=== PATIENT | female | born 1975 | race Caucasian/White ===

== ENCOUNTER 2019-04-05 17:19 | Emergency (ER) | payer SELFPAY ==
[2019-04-05 17:27] VITALS: BP 133/84; PULSE 90; RESP 17; TEMP 36.6; O2SAT 97; BMI 31.7
[2019-04-05 17:58] VITALS: BP 129/80; PULSE 86; RESP 17; TEMP 36.6; O2SAT 99; BMI 31.7
--- NOTE | 2019-04-05 18:02 | HMH.EDGENADL ---
ED Disposition Clinical Impression: Lupus (systemic lupus erythematosus) Qualifiers: Systemic lupus erythematosus type: unspecified Systemic lupus erythematosus organ involvement: unspecified Qualified Code(s): M32.9 - Systemic lupus erythematosus, unspecified Disposition: Home, Self-Care Condition on Discharge: Good Instructions: DI for Systemic Lupus Erythematosus Additional Instructions: Prednisone as prescribed. You are being provided with a list of physicians available for follow-up of your condition. Please call a physician on this list to arrange a follow-up appointment as soon as possible. Prescriptions: predniSONE [Prednisone 10mg Tab Dose-Pack] 10 mg PO DAILY #42 pack Referrals: Provider,Referral, [Primary Care Provider] - - Critical Care Critical Care Time: No Attestation: On 04/05/19, the high probability of a clinically significant, sudden or life threatening deterioration of the following system(s) required my full and direct attention, intervention and personal management. The time I documented below is in addition to time spent performing reported procedures but includes the following listed in this critical care notation. Medical Decision Making - Nael Inquiry Pt receiving controlled substance: No Vital Signs: 04/05/19 17:27 04/05/19 17:58 Temperature 97.8 F 97.9 F Temperature Source Oral Oral Pulse Rate [Left Radial] 90 86 Respiratory Rate 17 17 Blood Pressure [Right Arm] 133/84 129/80 Blood Pressure Mean [Right Arm] 100 96 Blood Pressure Source [Right Arm] Automatic Cuff Automatic Cuff Blood Pressure Position [Right Arm] Sitting Sitting 02 Sat by Pulse Oximetry 97 99 Oxygen Delivery Method Room Air Room Air Orders (Tests/Meds): ORDERS Category Date Time Status CT head/brain wo con Stat Cat Scan 04/05/19 18:12 Stop Req Complete Blood Count Auto Diff Stat Lab 04/05/19 18:08 Stop Req Comprehensive Metabolic Panel Stat Lab 04/05/19 18:08 Stop Req Medical Decision Narrative: Offered laboratory work-up, but the patient declines. She does not want blood work, thyroid function tests. General Adult HPI - General Stated complaint: Kidney Problems Time Seen by Provider: 04/05/19 18:15 Mode of Arrival: Ambulatory Source of Information: Patient Limitations: No Limitations Description of Symptoms (Recalled from ER Triage Doc. by RN): Thinks she is having a flare up of her Lupus, states that she has these often and sometimes they just go away, c/o lower back/kidney pain, feet swelling and tired. No edema noted at this time - History of Present Illness HPI narrative: Sent from the [facility]. Patient tells me that she knows what is wrong with her. She states she is having a lupus flareup. She says that she only needs a prescription for prednisone. She does not want any tests or CAT scans. She says that she was diagnosed in [place], saw several physicians, had blood work done. She says that her flareups were treated with a tapering dose of prednisone. She says she also has rheumatoid arthritis. She has also been on thyroid replacement in the past. She is now has been having symptoms for the past several weeks. She says when she gets a lupus flareup she gets swelling of her hands and feet and face. She gets flareup of her irritable bowel syndromes. She gets bilateral flank pain. She gets fatigue. She has not had fever. - Related Data Previous Rx's Medication Instructions Recorded predniSONE [Prednisone 10mg Tab 10 mg PO DAILY #42 pack 04/05/19 Dose-Pack] Allergies Allergy/AdvReac Type Severity Reaction Status Date / Time No Known Allergies Allergy Unverified 09/29/17 15:[address] [facility] History - Hepatitis A Screen Attestation statement:: This patient has been screened for Hepatitis A risk factors. I have reviewed the patient's past medical history: Yes ROS Obtained: Yes All systems reviewed & no additional complaints - Constitutional Con
--- NOTE | 2019-04-05 18:18 | PC.NURSE ---
MD at bedside, pt states that she does not want any test and knows this is a lupus flare up and only wants prednisone
[2019-04-05 18:24] LABS: Basophils % 0.6 % (0.1-2.0); Eosinophils # 0.3 K/mm3 (0.0-0.4); Eosinophils % 4.8 % (0.1-12.0); Hematocrit 45.6 % (37.0-47.0); Hemoglobin 14.6 g/dL (12.2-16.2); Lymphocytes % 44.6 % (10-50); Mean Corpuscular Hemoglobin 29.2 pg (27.0-31.2); Mean Corpuscular Volume 91.3 fl (81-99); Monocytes # 0.2 K/mm3 (0.1-1.0); Monocytes % 3.3 % (1.7-9.3); Neutrophils # 3.1 K/mm3 (1.8-7.8); Neutrophils % 46.7 % (37.0-80.0); Platelet Count 200 K/mm3 (142-424); Red Blood Count 4.99 M/mm3 (4.20-5.40); Red Cell Distribution Width 13.9 % (11.5-17.5); White Blood Count 6.7 K/mm3 (4.8-10.8)
[2019-04-05 18:31] LABS: Alanine Aminotransferase 39 U/L (12-78); Albumin Level 3.8 gm/dL (3.4-5.0); Albumin/Globulin Ratio 1.1 (1.1-1.8); Alkaline Phosphatase 109 U/L (46-116); Anion Gap 14.2 mEq/L (5-15); Aspartate Amino Transferase 27 U/L (15-37); Bilirubin,Total 0.3 mg/dL (0.2-1.0); Blood Urea Nitrogen 19 mg/dL (7-18); Calcium 8.9 mg/dL (8.5-10.1); Carbon Dioxide 27 mmol/L (21.0-32.0); Chloride 107 mmol/L (98-107); Creatinine Clearance Estimated 107 mL/min (50-200); Creatinine,Serum 1.03 mg/dL (0.55-1.02); Estimated Glomerular Filt Rate 58 ml/min (>60); GFR (African American) 70 ML/MIN (>60); Globulin 3.4 gm/dl (1.3-3.2); Glucose 106 mg/dL (74-106); Potassium 4.2 mmoL/L (3.5-5.1); Sodium 144 mmol/L (136-145); Total Protein,Serum 7.2 gm/dL (6.4-8.2)
[2019-04-05 18:39] VITALS: BP 110/76; PULSE 86; RESP 18; TEMP 36.9; O2SAT 94
== END 2019-04-05 18:41 | disposition home or self-care (01) ==
LOC: UTC 17:35 → ER 17:47
PROVIDERS: Emergency Provider Emergency Medicine
DX: M32.9 Systemic lupus erythematosus, unspecified (principal); K58.9 Irritable bowel syndrome, unspecified
CPT/HCPCS: 80053; 85025; 96374; 99281

== ENCOUNTER → 2019-08-25 10:13 | Outpatient (CLI) | payer MEDICAID, SELFPAY ==
--- NOTE | 2019-08-25 10:58 | XR_ITS ---
PROCEDURE: XR CHEST 2V CLINICAL HISTORY: cough Cough and right chest pain COMPARISON: Chest from 05/22/2019 FINDINGS: The cardiomediastinal silhouette and pulmonary vascularity are within normal limits. The lungs are clear without infiltrates, suspicious nodules, or pleural effusions. No acute bony abnormalities. IMPRESSION: No acute findings. Dictated by: Ryland Gregory MD 08/25/2019 15:30 Electronically signed by Ryland Gregory MD in [place] 08/25/2019 15:30
[2019-08-25 11:26] LABS: Basophils % 0.3 % (0.1-2.0); Eosinophils # 0.4 K/mm3 (0.0-0.4); Eosinophils % 4.1 % (0.1-12.0); Hematocrit 45.4 % (37.0-47.0); Hemoglobin 14.6 g/dL (12.2-16.2); Lymphocytes # 2.9 K/mm3 (0.7-4.5); Lymphocytes % 29.4 % (10-50); Mean Corpuscular HGB Conc 32.2 g/dL (31.8-35.4); Mean Corpuscular Hemoglobin 28.7 pg (27.0-31.2); Mean Corpuscular Volume 89.1 fl (81-99); Mean Platelet Volume 10.6 fl (7.4-10.4); Monocytes # 0.3 K/mm3 (0.1-1.0); Monocytes % 3.1 % (1.7-9.3); Neutrophils # 6.1 K/mm3 (1.8-7.8); Platelet Count 230 K/mm3 (142-424); Red Blood Count 5.09 M/mm3 (4.20-5.40); Red Cell Distribution Width 13.7 % (11.5-17.5); White Blood Count 9.7 K/mm3 (4.8-10.8)
[2019-08-25 12:45] LABS: Erythrocyte Sedimentation Rate 6 mm/hr (0-20)
[2019-08-25 13:50] LABS: Alanine Aminotransferase 40 U/L (12-78); Albumin Level 3.9 gm/dL (3.4-5.0); Albumin/Globulin Ratio 1.2 (1.1-1.8); Alkaline Phosphatase 123 U/L (46-116); Anion Gap 11.5 mEq/L (5-15); Aspartate Amino Transferase 21 U/L (15-37); Bilirubin,Total 0.3 mg/dL (0.2-1.0); Blood Urea Nitrogen 17 mg/dL (7-18); Calcium 9.1 mg/dL (8.5-10.1); Carbon Dioxide 28 mmol/L (21.0-32.0); Chloride 105 mmol/L (98-107); Chol/HDL Ratio 4.4 (1-3.5); Cholesterol 171 mg/dL (140-200); Creatinine,Serum 0.86 mg/dL (0.55-1.02); Estimated Glomerular Filt Rate 72 ml/min (>60); Free T4 (Free Thyroxine) 0.95 ng/dl (0.76-1.46); GFR (African American) 87 ML/MIN (>60); Globulin 3.2 gm/dl (1.3-3.2); Glucose 115 mg/dL (74-106); HDL Cholesterol 39 mg/dL (29-89); LDL Cholesterol 111 mg/dL (0-130); Potassium 4.5 mmoL/L (3.5-5.1); Sodium 140 mmol/L (136-145); Thyroid Stimulating Hormone 2.78 uIU/ml (0.358-3.740); Total Protein,Serum 7.1 gm/dL (6.4-8.2); Triglycerides 105 mg/dL (30-200); VLDL Cholesterol 21 mg/dL (0-40)
[2019-08-25 14:03] LABS: C-Reactive Protein < 0.2 mg/dL (0.0-0.9)
[2019-08-26 10:13] LABS: Anti-Centromere B Antibodies <0.2 AI (0.0-0.9); Anti-Jo-1 <0.2 AI (0.0-0.9); Anti-Smith Antibody <0.2 AI (0.0-0.9); Antichromatin Antibodies <0.2 AI (0.0-0.9); Antiscleroderma-70 Antibodies <0.2 AI (0.0-0.9); RNP Antibodies 0.3 AI (0.0-0.9); Sjogren's Anti-SS-A <0.2 AI (0.0-0.9); Sjogren's Anti-SS-B <0.2 AI (0.0-0.9)
[2019-08-26 21:14] LABS: Vitamin D 25 Hydroxy 17.7 ng/mL (30.0-100.0)
[2019-08-26 21:15] LABS: Anti-DNA (DS) Ab Qn <1 IU/mL (0-9); RA Latex Turbid. 27.7 IU/mL (0.0-13.9)
[2019-08-27 01:07] LABS: PTT-LA 40.5 sec (0.0-51.9); dRVVT 41.7 sec (0.0-47.0)
[2019-08-27 05:14] LABS: Lupus Reflex Interpretation Comment: (.)
[2019-08-28 21:49] LABS: Anti-Cyclic Citrullinated Pept 8 units (0-19)
== END ==
PROVIDERS: PCP Nurse Practitioner Family; Visit Provider Nurse Practitioner Family
DX: R53.83 Other fatigue (principal); N64.4 Mastodynia; R05 Cough; F17.200 Nicotine dependence, unspecified, uncomplicated
CPT/HCPCS: 71046; 80053; 80061; 82652; 84439; 84443; 85025; 85613; 85651; 86140; 86200; 86225; 86235; 86431

== ENCOUNTER → 2019-09-16 13:17 | Outpatient (CLI) | payer MEDICAID, SELFPAY ==
--- NOTE | 2019-09-16 13:19 | MM_ITS ---
PROCEDURE: MM DIG MAMM BI DX W/CAD CLINICAL INDICATION: PALP AREA RT BREAST Palpable abnormality in the right breast COMPARISON: DMDB DIGITAL MAMM-DX BILATERAL from 05/18/2012 US BREAST RT COMPLETE from 09/16/2019 TECHNIQUE: Standard CC and MLO images were obtained. R2 CAD reviewed. FINDINGS: This exam was performed as a screening and therefore not checked for additional images needed. Has been interval decrease in the fibroglandular tissue compared the previous study. There is a small area of asymmetric density in the superior aspect of the right breast as seen on the MLO view and there is a 6 mm nodular opacity in the central aspect right breast noted on CC view. Benign-appearing calcifications are noted on the left. No discrete mass. Right breast ultrasound: At 6 o'clock there is a 6 x 4 mm cyst. No other significant anomalies are evident. Patient reports palpable abnormality in the axillary region. IMPRESSION: Asymmetric densities in the right breast for which spot-compression views and straight mL view is suggested. BI-RAD Category: 0 Need Additional Imaging Evaluation FOLLOW-UP: IMM Immediate Follow-up Recommended There were no mammographic or sonographic abnormalities to correspond to the areas of palpable concern. Any palpable lesion should be managed on clinical basis despite a negative mammogram and ultrasound. (A letter has been sent to the patient regarding results of the study.) Dictated by: Ryland Gregory MD 09/24/2019 10:04 Electronically signed by Ryland Gregory MD in [place] 09/24/2019 10:04
== END ==
PROVIDERS: PCP Nurse Practitioner Family; Visit Provider Nurse Practitioner Family
DX: N64.4 Mastodynia (principal)
CPT/HCPCS: 76641; 77066

== ENCOUNTER → 2019-11-17 12:25 | Outpatient (CLI) | payer MEDICAID, SELFPAY ==
--- NOTE | 2019-11-17 12:25 | MM_ITS ---
PROCEDURE: MM DIG MAMM DX UNILAT RT CAD CLINICAL INDICATION: abnormal screening mammogram Follow-up abnormal mammogram COMPARISON: DMDB DIGITAL MAMM-DX BILATERAL from 05/18/2012 US BREAST RT COMPLETE from 09/16/2019 MM DIG MAMM BI DX W/CAD from 09/16/2019 TECHNIQUE: Problem solving views with 3D Tomosynthesis was obtained. R2 CAD reviewed. FINDINGS: There is average fibroglandular tissue. The area of asymmetric density in the superior aspect of the right breast appear to compress out is fibroglandular tissue. There is a small nodular opacity in the central aspect of the right breast. This measures approximately mm and may correspond to the small cyst noted at 6 o'clock on the ultrasound. IMPRESSION: Probably benign findings. No convincing evidence of malignancy BI-RAD Category: 3 Probably Benign Finding Short Term Follow-up FOLLOW-UP: 6M 6Month Follow-up (A letter has been sent to the patient regarding results of the study.) Dictated by: Ryland Gregory MD 11/26/2019 08:42 Electronically signed by Ryland Gregory MD in [place] 11/26/2019 08:42
[2019-11-19 08:18] LABS: Hep A Ab, IgM Negative (Negative); Hepatitis B Core Antibody IgM Negative (Negative); Hepatitis B Surface Antigen Negative (Negative)
[2019-11-19 15:30] LABS: Hepatitis C Antibody <0.1 s/co ratio (0.0-0.9)
== END ==
PROVIDERS: PCP Nurse Practitioner Family; Visit Provider Nurse Practitioner Family
DX: R76.8 Other specified abnormal immunological findings in serum (principal); Z11.59 Encounter for screening for other viral diseases; N60.09 Solitary cyst of unspecified breast; R92.8 Other abnormal and inconclusive findings on diagnostic imaging of breast
CPT/HCPCS: 36415; 77061; 77065; 80074; G0279

== ENCOUNTER 2020-06-05 15:54 | Emergency (ER) | payer MEDICAID, SELFPAY ==
--- NOTE | 2020-06-05 15:52 | ECG_ITS ---
APPROVED REPORT Exam: Resting ECG HR:68 bpm ECG Measurements Heart Rate 68 AXES CO 152 P 18 QRSd 82 QRS 56 QT 390 T 69 QTc 414 <Conclusion> Normal sinus rhythm Low voltage QRS Borderline ECG Electronically signed by : Patrick Cardenas, 06/06/2020 08:59:26
[2020-06-05 15:54] VITALS: BP 127/72; PULSE 80; RESP 17; TEMP 36.6; O2SAT 98; BMI 33.0
--- NOTE | 2020-06-05 15:57 | HMH.EDGENADL ---
ED Disposition Clinical Impression: Atypical chest pain, Chronic cough Disposition: Home, Self-Care Condition on Discharge: Good Instructions: DI for Cough -- Adult, DI for Atypical Chest Pain Additional Instructions: Call your primary care provider or the emergency department in 2 days for your COVID-19 test result. Additional instructions for CHEST PAIN: See your physician as soon as possible for further evaluation. Return immediately if worsening chest pain, vomiting, shortness of breath, fever, coughing of blood. Prescriptions: Albuterol Sulfate [Proventil-HFA 90mcg/puff Inh] 1 - 2 puffs IH Q6HP PRN #1 inh PRN Reason: Wheezing Transmission Status: Pending to [facility] Referrals: Celina Arriola APRN [Primary Care Provider] - - Critical Care Critical Care Time: No Attestation: On , the high probability of a clinically significant, sudden or life threatening deterioration of the following system(s) required my full and direct attention, intervention and personal management. The time I documented below is in addition to time spent performing reported procedures but includes the following listed in this critical care notation. Medical Decision Making - Nael Inquiry Pt receiving controlled substance: No Vital Signs: 06/05/20 15:54 06/05/20 17:02 06/05/20 19:12 Temperature 97.9 F Temperature Source Oral Pulse Rate [Right Radial] 80 73 79 Respiratory Rate 17 Blood Pressure [Right Arm] 127/72 106/73 L 125/81 Blood Pressure Mean [Right Arm] 90 84 95 Blood Pressure Source [Right Arm] Automatic Cuff Automatic Cuff Blood Pressure Position [Right Arm] Supine Sitting 02 Sat by Pulse Oximetry 98 94 L 96 Oxygen Delivery Method Room Air Room Air Room Air - Lab Data Lab Results 06/05/20 16:00: WBC 8.8, RBC 4.95, Hgb 15.1, Hct 44.1, MCV 89.1, MCH 30.5, MCHC 34.2, RDW 13.5, Plt Count 182, MPV 10.5 H, Neut % (Auto) 63.5, Lymph % (Auto) 29.3, Barrow % (Auto) 2.8, Eos % (Auto) 4.2, Baso % (Auto) 0.2, Neut # (Auto) 5.6, Lymph # (Auto) 2.6, Barrow # (Auto) 0.2, Eos # (Auto) 0.4, Baso # (Auto) 0.0 06/05/20 16:00: Sodium 140, Potassium 3.7, Chloride 105, Carbon Dioxide 24, Anion Gap 14.7, BUN 13, Creatinine 0.90, Estimated Creat Clear 130, Estimated GFR 68, Est GFR ( Amer) 82, Glucose 133 H, Calcium 9.5, Total Bilirubin 0.3, AST 42 H, ALT 28, Alkaline Phosphatase 115, Troponin I < 0.01, Total Protein 7.3, Albumin 4.3, Globulin 3.0, Albumin/Globulin Ratio 1.4 06/05/20 16:00: D-Dimer 0.77 06/05/20 18:55: Troponin I < 0.01 Result diagrams: 06/05/20 16:00 06/05/20 16:00 Orders (Tests/Meds): ORDERS Category Date Time Status Covid-19 Nasal PCR Sendout Elpidio Stat Lab 06/05/20 16:30 Received Troponin I Q3H Lab 06/05/20 22:00 Ordered - ECG Data Tracing #1 EKG interpreted by Tuan Selby MD: Rhythm: sinus Rate: 68 Bentley: normal Ectopy: none Conduction: normal ST Segment Changes: none T Wave Changes: none Q Waves: none Low voltage QRS No evidence of acute ischemia or injury - Reevaluation(s) Time: 19:49 Reevaluation #1: Second troponin negative. Discussed results with patient. She requests a prescription for an inhaler, states she has used 1 in the past. - TAB Score for Non-Stemi Age of Patient: 40-49 years old Heart Rate: 70-89 bpm Systolic Blood Pressure: 120-139 mmhg Serum Creatinine: 0.80-1.19 mg/dl CHF Killip Class: I-No CHF Other Risk Factors: None Non-Stemi Risk Score: 75 General Adult HPI - General Stated complaint: chest pain Time Seen by Provider: 06/05/20 15:58 - History of Present Illness HPI narrative: States that she has had constant chest pain like somebody standing on her chest since yesterday evening. Feels short of breath. No nausea or diaphoresis. Denies prior similar pain. She has been evaluated in this emergency department for chest pain this year, but it was a different type of pain. She does not have any known hea
--- NOTE | 2020-06-05 15:59 | XR_ITS ---
PROCEDURE: XR CHEST 2V CLINICAL HISTORY: chest pain COMPARISON: CR Chest from 05/22/2019 CR XR CHEST 2V from 08/25/2019 FINDINGS: The cardiomediastinal silhouette and pulmonary vascularity are within normal limits. The lungs are clear without infiltrates, suspicious nodules, or pleural effusions. No acute bony abnormalities. IMPRESSION: No acute findings. Dictated by: Ryland Gregory MD 06/05/2020 16:47 Ryland Gregory MD in [place] 06/05/2020 16:47
[2020-06-05 16:19] LABS: Basophils % 0.2 % (0.1-2.0); Eosinophils # 0.4 K/mm3 (0.0-0.4); Eosinophils % 4.2 % (0.1-12.0); Hematocrit 44.1 % (37.0-47.0); Hemoglobin 15.1 g/dL (12.2-16.2); Lymphocytes # 2.6 K/mm3 (0.7-4.5); Lymphocytes % 29.3 % (10-50); Mean Corpuscular HGB Conc 34.2 g/dL (31.8-35.4); Mean Corpuscular Hemoglobin 30.5 pg (27.0-31.2); Mean Corpuscular Volume 89.1 fl (81-99); Mean Platelet Volume 10.5 fl (7.4-10.4); Monocytes # 0.2 K/mm3 (0.1-1.0); Monocytes % 2.8 % (1.7-9.3); Neutrophils # 5.6 K/mm3 (1.8-7.8); Neutrophils % 63.5 % (37.0-80.0); Platelet Count 182 K/mm3 (142-424); Red Blood Count 4.95 M/mm3 (4.20-5.40); Red Cell Distribution Width 13.5 % (11.5-17.5); White Blood Count 8.8 K/mm3 (4.8-10.8)
[2020-06-05 16:25] LABS: Alanine Aminotransferase 28 U/L (12-78); Albumin Level 4.3 g/dl (3.5-5.0); Albumin/Globulin Ratio 1.4 (1.1-1.8); Alkaline Phosphatase 115 U/L (38-126); Anion Gap 14.7 mEq/L (5-15); Aspartate Amino Transferase 42 U/L (14-36); Bilirubin,Total 0.3 mg/dl (0.2-1.3); Blood Urea Nitrogen 13 mg/dl (7-17); Calcium 9.5 mg/dl (8.4-10.2); Carbon Dioxide 24 mmol/L (22.0-30.0); Chloride 105 mmol/L (98-107); Creatinine Clearance Estimated 130 mL/min (50-200); Estimated Glomerular Filt Rate 68 ml/min (>60); GFR (African American) 82 ML/MIN (>60); Glucose 133 mg/dl (74-100); Potassium 3.7 mmoL/L (3.5-5.1); Sodium 140 mmol/L (136-145); Total Protein,Serum 7.3 g/dl (6.3-8.2)
[2020-06-05 16:30] LABS: D-Dimer 0.77 ug/mL (0.15-8.0)
[2020-06-05 16:39] LABS: Troponin I < 0.01 ng/ml (0.00-0.034)
[2020-06-05 17:02] VITALS: BP 106/73; PULSE 73; O2SAT 94
--- NOTE | 2020-06-05 18:54 | PC.NURSE ---
repeat troponin drawn per kristian nassar and sent to lab at this time
[2020-06-05 19:12] VITALS: BP 125/81; PULSE 79; O2SAT 96
[2020-06-05 19:46] LABS: Troponin I < 0.01 ng/ml (0.00-0.034)
[2020-06-05 19:52] VITALS: BP 118/77; PULSE 68; RESP 16; TEMP 36.6; O2SAT 99
[2020-06-07 16:24] LABS: Covid-19 Nasal PCR Sendout Lex NOT DETECTED
== END 2020-06-05 19:57 | disposition home or self-care (01) ==
PROVIDERS: Emergency Provider Emergency Medicine; PCP Nurse Practitioner Family
DX: Z20.828 Contact with and (suspected) exposure to other viral communicable diseases (principal); R07.89 Other chest pain; F17.210 Nicotine dependence, cigarettes, uncomplicated; M32.9 Systemic lupus erythematosus, unspecified
CPT/HCPCS: 71046; 80053; 84484; 85025; 85378; 93005; 99284; U0004

== ENCOUNTER 2020-09-20 17:46 | Emergency (ER) | payer MEDICAID, SELFPAY ==
[2020-09-20 18:30] VITALS: BP 104/65; PULSE 105; RESP 14; TEMP 36.2; O2SAT 95; BMI 31.5
--- NOTE | 2020-09-20 18:57 | HMH.EDUTC ---
[facility] Disposition Clinical Impression: Viral syndrome, Bronchitis, Exposure to COVID-19 virus Disposition: Home, Self-Care Condition on Discharge: Good Instructions: Preventing the Spread of Coronavirus Discharge Instructions Additional Instructions: Drink plenty of fluids. Take tylenol for pain or fever. Return if you begin to have difficulty breathing. Follow up with your regular doctor. GO TO THE ER FOR ANY WORSENING SYMPTOMS Prescriptions: Ondansetron [Zofran 4mg ODT] 4 mg PO Q8HP PRN #12 tab.rapdis PRN Reason: Nausea Transmission Status: Received by [facility] Azithromycin [Z-Sky 250mg Tab*] 250 mg PO UD DOSE PK #6 tab Transmission Status: Received by [facility] Referrals: PCP,No [Primary Care Provider] - Time of Disposition: 18:58 Medical Decision Making - Medical Records Medical records reviewed: No: I reviewed the patient's medical records. - Nael Inquiry Pt receiving controlled substance: No Vital Signs: 09/20/20 18:30 09/20/20 19:04 Temperature 97.2 F L 97.2 F L Temperature Source Oral Pulse Rate 105 H Pulse Rate [Right Brachial] 105 H Respiratory Rate 14 14 Blood Pressure 104/65 L Blood Pressure [Right Arm] 104/65 L Blood Pressure Mean [Right Arm] 78 Blood Pressure Source [Right Arm] Automatic Cuff Blood Pressure Position [Right Arm] Sitting 02 Sat by Pulse Oximetry 95 Oxygen Delivery Method Room Air Orders (Tests/Meds): ORDERS Category Date Time Status Covid-19 Nasal PCR Sendout Elpidio Routine Lab 09/20/20 18:32 Received [facility] HPI - General Stated complaint: covid test, with symptoms Time Seen by Provider: 09/20/20 18:57 Mode of Arrival: Ambulatory Source of Information: Patient Limitations: No Limitations Description of Symptoms (Recalled from Triage Doc. by RN): PATIENT REQUESTING COVID TEST D/T EXPOSURE HEENT Symptoms (Recalled from RN notes): No Resp Symptoms (Recalled from RN notes): No Skin Symptoms (Recalled from RN notes): No MS Symptoms (Recalled from RN notes): No Functional Status (Recalled from RN notes): WNL - History of Present Illness Provider Complaint: She has been having fever, chills, cough, nausea and body aches for the past 4 days. She has been exposed to covid. - Related Data Previous Rx's Medication Instructions Recorded cholecalciferol (vitamin D3) 125 5,000 unit PO DAILY #30 cap 09/01/19 mcg (5,000 unit) capsule ergocalciferol (vitamin D2) 1,250 50,000 unit PO QWEEK #4 cap 09/01/19 mcg (50,000 unit) capsule Albuterol Sulfate [Proventil-HFA 1 - 2 puffs IH Q6HP PRN #1 inh 06/05/20 90mcg/puff Inh] Azithromycin [Z-Sky 250mg Tab*] 250 mg PO UD DOSE PK #6 tab 09/20/20 Ondansetron [Zofran 4mg ODT] 4 mg PO Q8HP PRN #12 tab.rapdis 09/20/20 Allergies Allergy/AdvReac Type Severity Reaction Status Date / Time No Known Allergies Allergy Verified 06/05/20 15:58 - Worker's Comp Is this a Worker's Comp case?: No [facility] History - Hepatitis A Screen Drug use history?: No High risk sexual behaviors?: No History of sexually transmitted infection?: No Currently employed?: No Childcare worker?: No Do you have indoor plumbing?: Yes Do you have electricity?: Yes Attestation statement:: This patient has been screened for Hepatitis A risk factors. I have reviewed the patient's past medical history: Yes Medical History: Denies:: Diabetes Mellitus Type 1, Diabetes Mellitus Type 2 - Social History Smoking Status: Current every day smoker Tobacco Type: cigarettes # Packs/Day (cigarettes): 1 Alcohol Intake: never Occupational Status: other ROS Obtained: Yes All systems reviewed & no additional complaints - Constitutional Constitutional: Reports system reviewed and no additional complaints, except as docu - Eyes Eyes: Reports system reviewed and no additional complaints, except as docu - ENT Ears, Nose, Mouth, and Throat: Reports system reviewed and no additional com
[2020-09-20 19:04] VITALS: BP 104/65; PULSE 105; RESP 14; TEMP 36.2; O2SAT 95
[2020-09-22 14:04] LABS: Covid-19 Nasal PCR Sendout Lex Not Detected
== END 2020-09-20 19:10 | disposition home or self-care (01) ==
PROVIDERS: Emergency Provider Nurse Practitioner Family
DX: Z20.828 Contact with and (suspected) exposure to other viral communicable diseases (principal); B34.9 Viral infection, unspecified; J20.9 Acute bronchitis, unspecified; F17.210 Nicotine dependence, cigarettes, uncomplicated
CPT/HCPCS: 99201; U0004

== ENCOUNTER 2021-06-24 16:58 | Emergency (ER) | payer MEDICARE, MEDICAID, SELFPAY ==
[2021-06-24 18:15] VITALS: BP 98/70; PULSE 86; RESP 14; TEMP 36.8; O2SAT 96; BMI 30.1
--- NOTE | 2021-06-24 19:00 | HMH.EDUTC ---
[facility] [place] Disposition Clinical Impression: Sinusitis Qualifiers: Sinusitis location: unspecified location Chronicity: unspecified Qualified Code(s): J32.9 - Chronic sinusitis, unspecified Disposition: Home, Self-Care Condition on Discharge: Good Instructions: Sinusitis, DI for Sinusitis, Amoxicillin and Clavulanic Acid Additional Instructions: *Monitor Temp, Over the counter Motrin or Tylenol as directed/as needed Tylenol every 4 hours and Motrin every 6 hours (as long as your family doctor has told you that you can take it) for fever or pain. and straight to ER if unable to lower temp less than 101.0 after medication given *Warm salt water gargles may help to soothe the throat *Throat Lozenges *Warm fluids like tea with honey may help to soothe the throat *Sleep elevated *Humidifier/Vaporizer Take medication as prescribed Return if needed Straight to ER if any life threatening symptoms Follow up IMMEDIATELY for new or worsening symptoms or no Noticeable improvement over the next 48-72 hours. 911 for difficulty breathing or swallowing Prescriptions: Albuterol Sulfate [Proventil-HFA 90mcg/puff Inh] 1 - 2 puffs IH Q6HP PRN #1 each PRN Reason: Shortness Of Breath Transmission Status: Pending to [facility] Amoxicillin/Potassium Clav [Augmentin 875-125 Tablet] 1 tab PO Q12H 10 Days #20 tab Transmission Status: [facility] to [facility] predniSONE [Deltasone 10mg tablet] 10 mg PO BID 5 Days #10 tab Transmission Status: [facility] Referrals: Provider,Referral, [Primary Care Provider] - As needed Time of Disposition: 19:13 Medical Decision Making - Nael Inquiry Pt receiving controlled substance: No Nael was queried for this patient: No Vital Signs: 06/24/21 18:15 Temperature 98.3 F Temperature Source Oral Pulse Rate [Right Brachial] 86 Respiratory Rate 14 Blood Pressure [Right Arm] 98/70 L Blood Pressure Mean [Right Arm] 79 Blood Pressure Source [Right Arm] Automatic Cuff Blood Pressure Position [Right Arm] Sitting 02 Sat by Pulse Oximetry 96 Oxygen Delivery Method Room Air [facility] [place] HPI - General Stated complaint: Sore throat,cough,SOB.LEE congestion Time Seen by Provider: 06/24/21 19:07 Mode of Arrival: Ambulatory Source of Information: Patient Limitations: No Limitations Description of Symptoms (Recalled from Triage Doc. by RN): PATIENT C/O LEFT EAR DRAINAGE, COUGH, AND RUNNY NOSE HEENT Symptoms (Recalled from RN notes): Yes Resp Symptoms (Recalled from RN notes): No Skin Symptoms (Recalled from RN notes): No MS Symptoms (Recalled from RN notes): No Functional Status (Recalled from RN notes): WNL - History of Present Illness Provider Complaint: Patient states that she has been sick for over a month States that she is having sinus pain and pressure along with drainage in the back of her throat, pain in her left ear and cough States that today the drainage from her sinuses had a bad taste so she came in to get checked - Related Data Previous Rx's Medication Instructions Recorded cholecalciferol (vitamin D3) 125 5,000 unit PO DAILY #30 cap 09/01/19 mcg (5,000 unit) capsule ergocalciferol (vitamin D2) 1,250 50,000 unit PO QWEEK #4 cap 09/01/19 mcg (50,000 unit) capsule Albuterol Sulfate [Proventil-HFA 1 - 2 puffs IH Q6HP PRN #1 inh 06/05/20 90mcg/puff Inh] Azithromycin [Z-Sky 250mg Tab*] 250 mg PO UD DOSE PK #6 tab 09/20/20 Ondansetron [Zofran 4mg ODT] 4 mg PO Q8HP PRN #12 tab.rapdis 09/20/20 Albuterol Sulfate [Proventil-HFA 1 - 2 puffs IH Q6HP PRN #1 each 06/24/21 90mcg/puff Inh] Amoxicillin/Potassium Clav 1 tab PO Q12H 10 Days #20 tab 06/24/21 [Augmentin 875-125 Tablet] predniSONE [Deltasone 10mg tablet] 10 mg PO BID 5 Days #10 tab 06/24/21 Allergies Allergy/AdvReac Type Severity Reaction Status Date / Time No Known Allergies Allergy Verified 06/05/20 15:58 - Worker's Comp Is this a Worker's Comp case?: No
[2021-06-24 19:14] VITALS: BP 98/70; PULSE 86; RESP 14; TEMP 36.8; O2SAT 96
== END 2021-06-24 19:18 | disposition home or self-care (01) ==
PROVIDERS: Emergency Provider Nurse Practitioner
DX: J32.9 Chronic sinusitis, unspecified (principal)
CPT/HCPCS: G0463; 99202

== ENCOUNTER 2021-09-07 01:47 | Emergency (ER) | payer MEDICARE, MEDICAID, SELFPAY ==
[2021-09-07 01:48] VITALS: BP 120/71; PULSE 85; RESP 20; TEMP 36.8; O2SAT 97; BMI 33.0
[2021-09-07 02:04] VITALS: PULSE 87; O2SAT 95
--- NOTE | 2021-09-07 02:09 | XR_ITS ---
PROCEDURE INFORMATION: Exam: XR Chest Exam date and time: 09/07/2021 2:09 AM Age: 45 years old Clinical indication: Cough TECHNIQUE: Imaging protocol: XR of the chest. Views: 2 views. COMPARISON: CR XR CHEST 2V 06/05/2020 4:20 PM FINDINGS: Lungs: Ill-defined opacities seen in the region of the costophrenic sulcus on the lateral view (probably on the left), suggesting a lower lobe pneumonia. Questionable correlate on the AP view. Pleural spaces: No pleural effusion. No pneumothorax. Heart/Mediastinum: Normal heart size. Bones/joints: Unremarkable. IMPRESSION: Suspected left lower lobe pneumonia.
[2021-09-07 02:30] VITALS: PULSE 89; O2SAT 97
[2021-09-07 02:30] LABS: Strep Scrn Group A (Rapid) Negative (Negative)
--- NOTE | 2021-09-07 02:33 | HMH.EDGENADL ---
ED Disposition Clinical Impression: Tobacco use Pharyngitis Qualifiers: Pharyngitis/tonsillitis etiology: unspecified etiology Qualified Code(s): J02.9 - Acute pharyngitis, unspecified Disposition: Home, Self-Care Condition on Discharge: Good Instructions: DI for Pharyngitis/Tonsillopharyngitis -- Adult Additional Instructions: use meds and see pcp and ent for follow up Prescriptions: levoFLOXacin [Levaquin 500mg tab] 500 mg PO DAILY #7 tab Transmission Status: P[facility] to [facility] predniSONE [Prednisone 20mg Tab] 20 mg PO BID #10 tab Transmission Status: Pending to [facility] Referrals: Provider,Referral, MD [Primary Care Provider] - - Critical Care Critical Care Time: No Attestation: On 09/07/21, the high probability of a clinically significant, sudden or life threatening deterioration of the following system(s) required my full and direct attention, intervention and personal management. The time I documented below is in addition to time spent performing reported procedures but includes the following listed in this critical care notation. Medical Decision Making - Medical Records Medical records reviewed: Yes: I reviewed the patient's medical records. - Nael Inquiry Pt receiving controlled substance: No Vital Signs: 09/07/21 01:48 Temperature 98.2 F Temperature Source Oral Pulse Rate [Apical] 85 Respiratory Rate 20 Blood Pressure [Right Arm] 120/71 Blood Pressure Mean [Right Arm] 87 Blood Pressure Source [Right Arm] Automatic Cuff Blood Pressure Position [Right Arm] Sitting 02 Sat by Pulse Oximetry 97 Oxygen Delivery Method Room Air - Lab Data Lab results reviewed: Yes: I reviewed the patient's lab results. Lab Results 09/07/21 02:11: Group A Strep Rapid Negative Orders (Tests/Meds): ORDERS Category Date Time Status Strep Screen Confirmation Stat Micro 09/07/21 02:11 Received - Radiology Data #1 Image(s): Chest Image Reviewed: Yes I have reviewed radiologist's interpretation Preliminary Findings: Abnormal Medical Decision Narrative: has possible pneumonia and positive rt lumph node in tob user - will trat and ask to follow up with ent and pcp General Adult HPI - General Chief complaint: PAIN Stated complaint: Pain in rt ear;Swollen glands,Sore throat Time Seen by Provider: 09/07/21 02:05 Mode of Arrival: Ambulatory Source of Information: Patient, Medical Record Limitations: No Limitations Description of Symptoms (Recalled from ER Triage Doc. by RN): Patient states that she has been having right ear pain for the prior month that radiates down into her throat. Reports that her right glands are swollen and when she coughs the odor is very foul. States that the ear pain is so severe she in unable to sleep at night. 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 Onset (ago): day(s) Severity: moderate Associated symptoms: denies other symptoms Treatments prior to arrival: none - Related Data Previous Rx's Medication Instructions Recorded levoFLOXacin [Levaquin 500mg 500 mg PO DAILY #7 tab 09/07/21 tab] predniSONE [Prednisone 20mg 20 mg PO BID #10 tab 09/07/21 Tab] Allergies Allergy/AdvReac Type Severity Reaction Status Date / Time No Known Allergies Allergy Verified 06/05/20 15:58 [facility] History - Hepatitis A Screen Drug use history?: No High risk sexual behaviors?: No History of sexually transmitted infection?: No Currently employed?: No Childcare worker?: No Do you have indoor plumbing?: Yes Do you have electricity?: Yes Attestation statement:: This patient has been screened for Hepatitis A risk factors. I have reviewed the patient's past medical history: Yes Medical History: Denies:: Diabetes Mellitus Type 1, Diabetes Mellitus Type 2 - Social History Smoking Status: Current every day smoker Tobacco Type: cigarettes # Packs/D
[2021-09-07 02:57] VITALS: BP 118/70; PULSE 84; RESP 19; TEMP 36.8; O2SAT 96
== END 2021-09-07 03:12 | disposition home or self-care (01) ==
PROVIDERS: Emergency Provider Emergency Medicine
DX: J02.9 Acute pharyngitis, unspecified (principal); F17.210 Nicotine dependence, cigarettes, uncomplicated
CPT/HCPCS: 71046; 87430; 99282

== ENCOUNTER → 2021-10-22 14:58 | Outpatient (CLI) | payer MEDICAID, SELFPAY | PROVIDERS: Visit Provider Nurse Practitioner | DX: Z20.822 Contact with and (suspected) exposure to COVID-19 (principal) | CPT/HCPCS: C9803; U0003; U0005 ==

== ENCOUNTER → 2021-11-13 08:48 | Outpatient (CLI) | payer MEDICARE, MEDICAID, SELFPAY ==
--- NOTE | 2021-11-13 08:48 | FL_ITS ---
FINAL REPORT CLINICAL HISTORY: dysphagia 63.23mGy 1.38 fluoro time FINDINGS: ESOPHAGRAM HISTORY: dysphagia. Cough. PROCEDURE: The patient ingested barium. Effervescent crystals were also administered. Spot and overhead films were obtained. FINDINGS: The esophagus is normal. There is a small sliding type hiatal hernia. There is no gastroesophageal reflux. Peristalsis is normal. A 13 mm barium tablet passes through the esophagus end of the stomach without delay. IMPRESSION: Small sliding-type hiatal hernia. Films reviewed , interpreted and dictated by Dr. Pittman. Transcribed by Shaheen Larson PA-C. Reviewed, Interpreted and Dictated by Jose Pittman III, MD Transcribed by YANNI Whiteside Authenticated by Jose Pittman III, MD on 11/13/2021 12:38:08 PM [facility][1]
== END ==
PROVIDERS: Visit Provider Student in an Organized Health Care Education/Training Program
DX: R13.10 Dysphagia, unspecified (principal)
CPT/HCPCS: 74220

== ENCOUNTER → 2022-01-28 12:55 | Outpatient (CLI) | payer MEDICARE, MEDICAID, SELFPAY ==
--- NOTE | 2022-01-28 12:59 | US_ITS ---
FINAL REPORT CLINICAL HISTORY: Pain R Neck FINDINGS: ULTRASOUND SOFT TISSUES OF THE NECK Sonographic images of the soft tissues of the neck were obtained. There is no mass or fluid collection. There are normal appearing bilateral parotid and submandibular glands. There are several borderline sized neck nodes favored to be reactive. IMPRESSION: Borderline size neck nodes favored to be reactive. Reviewed, Interpreted and Dictated by Jose Pittman III, MD Transcribed by Naidne Bang Authenticated by Jose Pittman III, MD on 01/28/2022 04:37:21 PM [facility]
== END ==
PROVIDERS: PCP Nurse Practitioner Family; Visit Provider Nurse Practitioner Family
DX: M54.2 Cervicalgia (principal)
CPT/HCPCS: 76536

== ENCOUNTER → 2022-02-05 14:09 | Outpatient (CLI) | payer MEDICARE, MEDICAID, SELFPAY | PROVIDERS: PCP Nurse Practitioner Family; Visit Provider Nurse Practitioner Family | DX: G47.33 Obstructive sleep apnea (adult) (pediatric) (principal); M54.2 Cervicalgia; F33.0 Major depressive disorder, recurrent, mild; R06.83 Snoring | CPT/HCPCS: 95806 ==

== ENCOUNTER 2023-02-12 19:39 | Emergency (ER) | payer MEDICARE, MEDICAID, SELFPAY ==
[2023-02-12 19:59] VITALS: BP 95/45; PULSE 116; RESP 18; TEMP 37.2; O2SAT 96; BMI 33.0
[2023-02-12 20:13] LABS: Coronavirus 19, PCR Not Detected (NotDetected); Influenza A, PCR Not Detected (NotDetected); Influenza B, PCR Not Detected (NotDetected)
[2023-02-12 20:31] LABS: Strep Scrn Group A (Rapid) Negative (Negative)
--- NOTE | 2023-02-12 20:53 | HMH.EDGENADL ---
Discharge Plan Disposition Patient Disposition: Home, Self-Care Condition: Good Prescriptions Prescriptions: New benzonatate 200 mg capsule 200 mg PO TID PRN (Reason: cough) Qty: 20 0RF No Action Vraylar 1.5 mg capsule 1.5 mg PO DAILY Qty: 30 2RF methocarbamol 500 mg tablet 500 mg PO TID Qty: 21 0RF Referrals Follow up/Referrals: Renzo Marquez APRN [Primary Care Provider] - See instructions Activity Restrictions/Add. Instructions Additional Instructions/Restrictions: You were evaluated in the emergency department today. Please take Tylenol and Motrin at home as needed for fever and body aches. transit operations supervisor your prescription and take it as needed for cough. Follow-up with your primary care provider over the next 3 days for reassessment. Return to the emergency department for new or worsening symptoms. Clinical Impressions Clinical Impression: Viral URI with cough Instructions Patient Instructions: Cough, DI for Acute Bronchitis Discharge ED Provider: Gerda Read General Adult HPI General Chief complaint: Upper Respiratory Infection Stated complaint: sore throat,cough,face hurts,vomiting,rib pain Time Seen by Provider: 02/12/23 20:06 Mode of Arrival: Ambulatory Source of Information: Patient Limitations: No Limitations Description of Symptoms (Recalled from ER Triage Doc. by RN): Pt states that she began having a productive cough last night followed by body aches, swollen lymph nodes, sore throat and low grade fever since. TMAX of 101. Patient states that she has been producing handful's of snot and has never seen this much mucous. History of Present Illness HPI narrative: This patient is a 47-year-old female who denies significant past medical history presenting to the emergency department for evaluation with concern for fever, body aches, sore throat, productive cough, and runny nose that started last night. She has taken Advil at home without significant improvement. Last dose was last night. She denies any history of cardiopulmonary issues and states that she was well prior to this. No abdominal pain, vomiting, difficulty swallowing, change in bowel movements, or other concerns. Related Data Previous Rx's Medication Instructions Recorded cariprazine 1.5 mg capsule 1.5 mg PO DAILY #30 caps 03/05/22 (Vraylar) methocarbamol 500 mg tablet 500 mg PO TID #21 tabs 03/17/22 benzonatate 200 mg capsule 200 mg PO TID PRN cough #20 caps 02/12/23 Allergies Allergy/AdvReac Type Severity Reaction Status Date / Time No Known Allergies Allergy Verified 02/26/22 13:37 [facility] Disclaimer: The information contained in this section may have been updated after the patient was seen, as this information can be updated by other users. Social History Smoking Status: Current every day smoker tobacco type: cigarettes packs per day: 1 alcohol intake: never substance use type: denies use current occupational status: disabled Travel in the last 8 weeks: None household members: children housing: house ROS Obtained: Yes All systems reviewed & no additional complaints except as documented 14 point review of systems obtained and negative except as mentioned in HPI. Physical Exam General General appearance: alert and in no apparent distress Head Head exam: atraumatic and normocephalic Eye Eye exam: Present normal appearance, PERRL and EOMI ENT ENT exam: Present normal exam, normal oropharynx and mucous membranes moist Neck Neck exam: Present normal inspection and full ROM Chest Chest inspection: Present normal inspection and symmetric chest wall rise Respiratory Respiratory exam: Present normal lung sounds bilaterally; Absent respiratory distress, wheezes, stridor or accessory muscle use Cardiovascular Cardiovascular exam: Present regular rate and normal rhythm Abdominal Exam Abdominal exam: Present soft; Absent distention,
[2023-02-12 21:13] VITALS: BP 109/87; PULSE 94; RESP 18; TEMP 37.2; O2SAT 97
== END 2023-02-12 21:24 | disposition home or self-care (01) ==
PROVIDERS: Emergency Provider Emergency Medicine; PCP Nurse Practitioner Family
DX: J06.9 Acute upper respiratory infection, unspecified (principal); F17.210 Nicotine dependence, cigarettes, uncomplicated
CPT/HCPCS: 87430; 96372; 99283; 99284; C9803; U0003; U0005

== ENCOUNTER 2023-06-12 15:49 | Emergency (ER) | payer SELFPAY ==
--- NOTE | 2023-06-12 15:52 | XR_ITS ---
FINAL REPORT CLINICAL HISTORY: Left knee pain COMPARISON: None FINDINGS: LEFT KNEE 3 views of the left knee were obtained. There is no acute fracture or dislocation. The joint spaces are preserved. There is no evidence of joint effusion. The bones are well mineralized. Soft tissues are unremarkable. IMPRESSION: No acute bony abnormality. Reviewed, Interpreted and Dictated by Hadley Paulino MD Transcribed by Jaimie Mansfield Authenticated and . [facility]
[2023-06-12 16:00] VITALS: BP 122/71; PULSE 69; RESP 24; TEMP 36.7; O2SAT 96; BMI 34.4
--- NOTE | 2023-06-12 16:44 | EXP.UTC ---
Discharge Plan Disposition Patient Disposition: Home, Self-Care Condition: Good Prescriptions Prescriptions: No Action Vraylar 1.5 mg capsule 1.5 mg PO DAILY Qty: 30 2RF methocarbamol 500 mg tablet 500 mg PO TID Qty: 21 0RF benzonatate 200 mg capsule 200 mg PO TID PRN (Reason: cough) Qty: 20 0RF Referrals Follow up/Referrals: Provider,Referral, MD [Primary Care Provider] - See instructions Activity Restrictions/Add. Instructions Additional Instructions/Restrictions: *weight bearing as tolerated *RICE, Rest the extremity, Ice 15-20 minutes 3-4 times daily, Compress- wear the gabi wrap as discussed as much as possible to help reduce swelling and pain, Elevate the extremity when at rest *Knee immobilizer is for support and help control swelling, use it except in the shower. Be sure that is not to tight but not to loose either *Elevate when resting? *Ibuprofen 600-800mg every 6-8 hours as needed for pain an inflammation. If need something more can take Tylenol in between doses of Ibuprofen to help Immediately follow up with your family doctor for new or worsening of symptoms, or no noticeable improvement over the next 3-5 days Follow up with Family Doctor or Orthopedics if pain continues Clinical Impressions Clinical Impression: Knee sprain Qualifiers: Encounter type: initial encounter Involved ligament of knee: unspecified ligament Laterality: left Qualified Code(s): S83.92XA - Sprain of unspecified site of left knee, initial encounter Instructions Patient Instructions: Knee Sprain, DI for Knee Sprain, How to Use a Knee Immobilizer Discharge ED Provider: Suzi Mccollum [facility] HPI General Stated complaint: Lt knee injury Mode of Arrival: Ambulatory Source of Information: Patient Limitations: No Limitations Time Seen by Provider: 06/12/23 16:44 Description of Symptoms (Recalled from Triage Doc. by RN): PATIENT C/O LEFT KNEE PAIN AFTER A LARGE DOG RAN INTO IT 2 DAYS AGO HEENT Symptoms (Recalled from RN notes): No Resp Symptoms (Recalled from RN notes): No Skin Symptoms (Recalled from RN notes): No MS Symptoms (Recalled from RN notes): Yes Functional Status (Recalled from RN notes): WNL History of Present Illness Provider Complaint: Patient states that she was standing and a large dog ran into her left knee and bowed it backwards States that ever since she has been having pain in her left knee in the back so today when it was still hurting her she came in to get it checked Related Data Previous Rx's Medication Instructions Recorded cariprazine 1.5 mg capsule 1.5 mg PO DAILY #30 caps 03/05/22 (Vraylar) methocarbamol 500 mg tablet 500 mg PO TID #21 tabs 03/17/22 benzonatate 200 mg capsule 200 mg PO TID PRN cough #20 caps 02/12/23 Allergies Allergy/AdvReac Type Severity Reaction Status Date / Time No Known Allergies Allergy Verified 02/26/22 13:37 Worker's Comp Is this a Worker's Comp case?: No [facility] Disclaimer: The information contained in this section may have been updated after the patient was seen, as this information can be updated by other users. Social History Smoking Status: Current every day smoker tobacco type: cigarettes packs per day: 1 alcohol intake: never substance use type: denies use current occupational status: disabled Travel in the last 8 weeks: None household members: children housing: house ROS Obtained: Yes All systems reviewed & no additional complaints except as documented and Yes Systems reviewed as appropriate & no additional complaints except as documented Constitutional Constitutional: Reports system reviewed and no additional complaints, except as documented and Reports as per HPI ENT Ears, Nose, Mouth, and Throat: Reports system reviewed and no additional complaints, except as documented and Reports as per HPI Cardiovascular Cardiovascular: Reports system reviewed and no
[2023-06-12 17:22] VITALS: BP 122/71; PULSE 69; RESP 24; TEMP 36.7; O2SAT 96
== END 2023-06-12 17:29 | disposition home or self-care (01) ==
PROVIDERS: Emergency Provider Nurse Practitioner
DX: S83.92XA Sprain of unspecified site of left knee, initial encounter (principal); F17.210 Nicotine dependence, cigarettes, uncomplicated; W54.1XXA Struck by dog, initial encounter
CPT/HCPCS: 73562; 99212; 99214; G0463

== ENCOUNTER 2024-01-28 07:19 | Outpatient (CLI) | payer MEDICARE, SELFPAY ==
--- NOTE | 2024-01-28 | CA_ITS ---
APPROVED REPORT Exam: Pharmacologic Technologist: Sofy Causey, Ht: 5 ft 10 in Wt: 210 lbs BSA: 2.13 m2 HR: 73 bpm BP: 120/75 mmHg Rhythm: NSR, LOW VOLTAGE QRS Medical History Medical History: Smoking Allergies: No known drug allergies Cardiac Risk Factors: Smoking Stress Test Details Test: LEXISCAN HR Resting HR: 68 bpm Max Heart Rate (APMHR): 171 bpm Max HR Achieved: 102 bpm Target HR (85% APMHR): 145 bpm % of APMHR: 60 Recovery HR: 71 bpm BP Resting BP: 120/75 mmHg Max BP: 120/75 mmHg Recovery BP: 114.0/69.0 mmHg ECG Resting ECG: NSR, LOW VOLTAGE QRS Clinical Exercise duration: 04:03 min Highest Stage Achieved: Stress ECG Conclusion PT HAD SOA, HEAD DISCOMFORT, LIGHT-HEADEDNESS, BLURRY VISSION AND MILD CHEST PRESSURE NO SIGNIFICANT ST CHANGES UNREMARKABLE LEXISCAN STRESS MYOVIEW IMAGES REPORTED SEPARATELY Test Summary REST 03:07 . . 68 . 120/ 75 . . Stage 1 01:00 . . 91 . . . . Stage 2 01:00 . . 91 . 119/ 68 . . Stage 3 01:00 . . 90 . 100/ 69 . . Stage 4 01:00 . . 88 . . . . Stage 4 01:03 . . 84 . . . Stop exercise at 04:03 RECOVERY 01:00 . . 79 . 99/ 71 . . RECOVERY 02:00 . . 84 . 99/ 71 . . RECOVERY 03:00 . . 81 . 117/ 75 . . RECOVERY 04:00 . . 75 . 105/ 67 . . RECOVERY 05:00 . . 71 . 114/ 69 . . RECOVERY 05:22 . . 78 . 114/ 69 . . Electronically signed by : Mary Simental MD 01/31/2024 22:51:09
--- NOTE | 2024-01-28 07:20 | NM_ITS ---
APPROVED REPORT Exam: Nuclear Stress Test Indication: Chest pain, SOB, Tobacco use, Family history Patient Location: Outpatient Stress Tech: Sofy Causey PR Tech:Yuliya Cruz, ARRT, RT (R)(N) Ht: 5 ft 10 in Wt: 230 lbs Bra Size: 38DDD HR: 68 bpm BP: 120/75 mmHg BSA: 2.21 m2 Rhythm: NSR BMI: 32.9 History: Chest pain, SOB, Tobacco use, Family history Procedure: Patient received 0.4 mg of intravenous Lexiscan, resting heart rate 68 bpm, resting blood pressure 120/75 mmHg, with Lexiscan maximum heart rate achieved was 102 bpm which is % of the maximum predicted heart rate and blood pressure was 120/75 mmHg. With Lexiscan, patient denied any complaint of chest pain. Cardiac Stress and Resting SPECT Images: Cardiac Stress and Resting SPECT images were obtained using technetium 99m Myoview 31.8 mCi stress and 10.39 mCi at rest. Raw images demonstrate significant soft tissue overlap with the anterior myocardial border. This may affect the diagnostic interpretation of the study findings. Resting and stress imaging in supine positions demonstrate a medium sized, moderate, fixed perfusion defect in the anterior LV wall. This is no longer visualized with prone stress imaging. Findings are suggestive of soft tissue attenuation. There is also increased transient ischemic dilatation ratio (TID 1.32), suggestive of possible multivessel disease or balanced ischemia. Gated imaging demonstrates normal global and regional LV systolic function. LVEF is calculated at 60%. Conclusion: Soft tissue attenuation is present. Increased transient ischemic dilatation ratio (TID 1.32), suggestive of possible multivessel disease or balanced ischemia. Gated imaging demonstrates normal global and regional LV systolic function. LVEF is calculated at 60%. In the setting of nonspecific transient ischemic dilatation (TID) ratio on nuclear stress testing and young age, further evaluation with noninvasive testing (i.e. CCTA) to rule out multivessel disease is recommended first prior to proceeding with invasive coronary angiography. Electronically signed by : Mary Simental MD 01/31/2024 22:54:39
[2024-01-28] MEDS: REGADENOSON 0.4MG/5ML SYRINGE 0.400000000000000022 MG IV (08:55)
[2024-01-28] MEDS: ISOTOPE MYOVIEW (PER STUDY) 1 DOSE IV (08:55)
[2024-01-28] MEDS: SODIUM CHLORIDE 0.9% 10ML SYR (RAD ONLY) 10 ML IV ×2 (08:55)
--- NOTE | 2024-01-28 09:03 | CA_ITS ---
APPROVED REPORT EXAM: Comprehensive 2D, Doppler, and color-flow Echocardiogram Audiovisual Aids Technician: Monse Huston RDCS Ht: 5 ft 10 in Wt: 230lbs BSA: 2.21 BP: 118/70 mmHg Indications: CP,SOA,SMOKER M-Mode Dimensions RVDd 2.62 cm (0.9-2.6) LA Diam 3.54 cm (1.9-4.0) LVDd 4.79 cm (3.5-5.7) LVDs 3.34 cm (3.5-5.7) IVSd 0.84 cm (0.6-1.1) PWd 0.87 cm (0.6-1.1) EF (Teich) 57.60% FS 30.30% EDV (Teich) 107.00 mL TAPSE 2.29 (<1.7) ESV (Teich) 45.40 mL LV Diastology E Decel Time 220 (160-240 msec) E/A Ratio 1.2 Mitral Valve MV E Max Mark. 87.0 (40-130 cm/s) MV A Velocity 71.0 (40-130 cm/s) E/A Ratio 1.23 MV PHT 64.0 ms Tricuspid Valve TR P. Velocity 213.00 cm/s RAP Estimate 10.00 mmHg RVSP 28.20 mmHg Left Ventricle The left ventricle is normal size. The left ventricular systolic function is normal. The left ventricular ejection fraction is within the normal range. Proximal septal thickening is noted. There is normal LV segmental wall motion. The left ventricular diastolic function is normal. LVEF is 55%. Right Ventricle The right ventricle is normal size. The right ventricular systolic function is normal. Atria The left atrium size is normal. The right atrium size is normal. There is no Doppler evidence of interatrial shunt. Aortic Valve The aortic valve opens well. There is no aortic valvular stenosis. No aortic regurgitation is present. Mitral Valve The mitral valve is normal in structure. No evidence of mitral valve stenosis. Trace mitral regurgitation. Tricuspid Valve The tricuspid valve leaflets are thin and pliable. Mild tricuspid regurgitation. RVSP is 20-25 mmHg. Pulmonic Valve The pulmonary valve is normal in structure. Trace pulmonic regurgitation. Great Vessels The aortic root is normal in size. The ascending aorta is normal in size. IVC is normal in size and collapses >50% with inspiration. Pericardium There is no pericardial effusion. Other Information Study Quality: Fair Conclusion Normal biventricular systolic function. Mild TR. Electronically signed by : Mary Simental MD 02/01/2024 12:35:38
== END 2024-01-28 23:59 ==
PROVIDERS: PCP Nurse Practitioner Family; Visit Provider Nurse Practitioner Family
DX: R07.2 Precordial pain (principal); R06.02 Shortness of breath
CPT/HCPCS: 78452; 93017; 93018; 93306; A9502; J2785

== ENCOUNTER 2024-02-03 08:22 | Outpatient (CLI) | payer MEDICARE, SELFPAY ==
[2024-02-03 08:28] LABS: MANUAL DIFFERENTIAL MANUAL DIFFERENTIAL (MANUAL DIFF)
[2024-02-03 09:08] LABS: Basophils # 0.1 K/mm3 (0-0.2); Basophils % 0.8 % (0.1-2.0); Eosinophils # 0.4 K/mm3 (0.0-0.4); Eosinophils % 4.8 % (0.1-12.0); Hematocrit 44.3 % (37.0-47.0); Hemoglobin 14.1 g/dL (12.2-16.2); Lymphocytes # 2.9 K/mm3 (0.7-4.5); Lymphocytes % 33.3 % (10-50); Mean Corpuscular HGB Conc 31.8 g/dL (31.8-35.4); Mean Corpuscular Hemoglobin 29.4 pg (27.0-31.2); Mean Corpuscular Volume 92.3 fl (81-99); Mean Platelet Volume 11.4 fl (7.4-10.4); Monocytes # 0.4 K/mm3 (0.1-1.0); Monocytes % 4.6 % (1.7-9.3); Neutrophils # 4.8 K/mm3 (1.8-7.8); Neutrophils % 56.5 % (37.0-80.0); Platelet Count 182 K/mm3 (142-424); Red Cell Distribution Width 14.8 % (11.5-17.5); White Blood Count 8.5 K/mm3 (4.8-10.8)
[2024-02-03 10:34] LABS: Eosinophils % 3 % (0-3); Lymphocytes % 44 % (10-50); Monocytes % 2 % (2-9); Neutrophils % 51 % (42-76); Total Cells Counted 100
[2024-02-03 10:35] LABS: Platelet Estimate Normal; RBC Morphology Normal
[2024-02-03 10:36] LABS: Alanine Aminotransferase 24 U/L (12-78); Albumin/Globulin Ratio 1.7 (1.1-1.8); Alkaline Phosphatase 93 U/L (38-126); Anion Gap 11.3 mEq/L (5-15); Aspartate Amino Transferase 27 U/L (14-36); Bilirubin,Total 0.4 mg/dl (0.2-1.3); Blood Urea Nitrogen 16 mg/dl (7-17); Calcium 9.4 mg/dl (8.4-10.2); Carbon Dioxide 23 mmol/L (22.0-30.0); Chloride 113 mmol/L (98-107); Chol/HDL Ratio 5.5 (1-3.5); Cholesterol 202 mg/dl (140-200); Estimated Glomerular Filt Rate 59 ml/min (>60); GFR (African American) 71 ML/MIN (>60); Globulin 2.3 g/dL (1.3-3.2); Glucose 121 mg/dl (74-100); HDL Cholesterol 37 mg/dl (40-60); Potassium 4.3 mmoL/L (3.5-5.1); Sodium 143 mmol/L (136-145); Total Protein,Serum 6.3 g/dl (6.3-8.2); Triglycerides 140 mg/dl (30-150); VLDL Cholesterol 28 mg/dL (0-40)
[2024-02-03 10:38] LABS: Alanine Aminotransferase 24 U/L (12-78); Alkaline Phosphatase 92 U/L (38-126); Aspartate Amino Transferase 29 U/L (14-36); Bilirubin,Direct 0.2 mg/dl (0.0-0.4); Bilirubin,Indirect 0.4 mg/dL (0.0-0.9); Bilirubin,Total 0.6 mg/dl (0.2-1.3); Bilirubin,Unconjugated 0.4 mg/dL (0.0-1.1); Total Protein,Serum 6.4 g/dl (6.3-8.2)
[2024-02-03 10:47] LABS: Direct LDL Cholesterol 98.01 mg/dL (100-129)
[2024-02-03 11:06] LABS: Thyroid Stimulating Hormone 5.82 uIU/mL (0.465-4.68)
== END 2024-02-03 23:59 | disposition home or self-care (01) ==
LOC: LAB 08:22
PROVIDERS: PCP Nurse Practitioner Family; Visit Provider Nurse Practitioner
DX: E66.9 Obesity, unspecified (principal); R07.9 Chest pain, unspecified; E78.5 Hyperlipidemia, unspecified; Z68.32 Body mass index [BMI] 32.0-32.9, adult
CPT/HCPCS: 36415; 80053; 80061; 80076; 82306; 84443; 85007; 85014; 85018; 85048; 85049

== ENCOUNTER 2024-02-03 09:00 | Outpatient (RCR) | payer MEDICARE, SELFPAY ==
--- NOTE | 2024-01-31 17:36 | HMH.PTOPEV ---
PT Outpatient Evaluation Rehab PT Outpatient Evaluation Start: 01/31/24 17:20 Freq: Status: Active Protocol: Document 01/27/24 08:00 IAN (Rec: 01/31/24 17:35 IAN [id number]) E-signed By Darek Rueda, PT Outpatient Therapy Subjective History Subjective History Patient is a 48 year old female presenting to outpatient PT with reports of chronic L knee pain starting approx 6 months ago. Symptoms a result of hyperextension injury. Most recent imaging negative for any bony abnormality. No other comorbidities to report. New diagnosis of cancer in past 12 No months? Chief Complaint Pain,Stiff,Swelling,Gives out/ Unstable Symptom Type Sharp,Burning Symptoms Relieved By Rest/Positioning,OTC Meds Symptoms Aggravated By Standing,Physical Activity, Walking Prior Functional Limitations None Current Functional Limitations Housework,Standing,Squatting, Walking,Stairs,Balance Symptom Description Constant but Variable Level of pain today (0-10) 5 Pain scale - at its best (0-10) 3 Pain scale - at its worst (0-10) 8 Hip/Knee Eval Gait Observation General Gait Pattern Observation Antalgic Gait,Decrease Weight Bear (L) Assistive Device Assistive Devices None / NA Palpation Tenderness left Knee Palpation Finding Tenderness Knee Palpation Overall Comment medial joint line, patellar tendon 3/4 MMT Hip Flexion Strength Grade 4 Good Hip Abduction Strength Grade 4- Good- Hip Adduction Strength Grade 4- Good- Hip Extension Strength Grade 4- Good- Hip External Rotation Strength Grade 4- Good- Hip Internal Rotation Strength Grade 4- Good- Knee Extension Strength Grade 4 Good Knee Flexion Strength Grade 5 Normal ROM Hip ROM Reason Not Measured Within Functional Limits Knee ROM Reason Not Measured Within Functional Limits Special Tests Knee Anterior Jacquelyn Test Negative Left Knee Pivot Shift Test Negative Left Knee Valgus Stress Test Negative Left Knee Varus Stress Test Negative Left Knee Sarina Test Negative Left Lower Extremity Functional Index Activities Today, do you or would you have any difficulty at all with: a.Any of your usual work, housework or Quite a bit of difficulty school activities b. Your usual hobbies, recreational or No difficulty sporting activities c. Getting into or out of the bath Quite a bit of difficulty d. Walking between rooms Quite a bit of difficulty e. Putting on your shoes or socks No difficulty f. Squatting Quite a bit of difficulty g. Lifting an object, like a bag of Quite a bit of difficulty groceries from the floor h. Performing light activities around Quite a bit of difficulty your home i. Performing heavy activities around Extreme difficulty or unable your home to perform activity j. Getting into or out of a car Extreme difficulty or unable to perform activity k. Walking 2 blocks Extreme difficulty or unable to perform activity l. Walking a mile Extreme difficulty or unable to perform activity m. Going up or down 10 stairs (about 1 Extreme difficulty or unable flight of stairs) to perform activity n. Standing for 1 hour Extreme difficulty or unable to perform activity o. Sitting for 1 hour Quite a bit of difficulty p. Running on even ground Extreme difficulty or unable to perform activity q. Running on uneven ground Extreme difficulty or unable to perform activity r. Making sharp turns while running fast Extreme difficulty or unable to perform activity s. Hopping Extreme difficulty or unable to perform activity t. Rolling over in bed Quite a bit of difficulty LEFI Score Lower Extremity Functional Index Score 16 Outpatient Therapy Assessment Impairments Problems/Impairmments Palpation Tenderness,Impaired Range of Motion,Impaired Strength,Impaired Gait Pattern ,Impaired Walking,Impaired Standing,Impaired Household Care,Impaired Stair Climbing, Impaired Incline Stepping, Impaired Stepping on Uneven Surface,Impaired Squatting, Impaired Bending,Impaired Work Activities,Subjective C/O Pain Prognosis Rehab Potential Good Clinical Impression Consistent with Diagnosis Yes Short Term Goals Number of Weeks 2 Decrease Subjective C/O Pain Yes: 5/10 at worst Patient to be Ind w/ HEP Yes Fdc Goals Number of Weeks 4-6 Decreased Palpation Tenderness Yes: 1/4 Increase Range of Motion Yes: WNL Increase Strength Yes: 5/5 Increase Ability to Walk Yes: 30 min without difficulty Increase Ability to Stand Yes: Increase Ability to Sit Yes: Improve Ability For Household Care Yes Improve Ability to Climb Stairs Yes: 1 flight up/down without difficulty Improve LEFI Score Yes: >50 Outpatient Therapy Plan of Care Treatment Plan May Include Therapeutic Exercise Including Home Yes Exercise Program Manual Therapy Techniques Yes Neuromuscular Re-education Yes Therapeutic Activities to Return to Yes Previous Functional/Work Level Gait Training Yes ADL/Self Care Education Yes Dry Needling Yes Thermal Modalities Yes Electrical Stimulation Yes Ultrasound/Phonophoresis Yes Iontophoresis Yes Orthotics/Bracing/Splinting Yes Vasopneumatic Compression Pump Yes Massage Yes Manual Lymphatic Drainage Yes Eval/Re-Eval Yes Frequency Times per week 2 Duration Number of Weeks 4-6 Addendums This patient is a candidate for social No or vocational rehab? Patient/Guardian verbally acknowledges Yes understanding of treatment program and consents to further treatment? Patient/Guardian verbally acknowledges Yes understanding of diagnosis, prognosis and goals for treatment? Eval Complexity PT Charges 60084 - Moderate Complexity Shoulder/Elbow Eval Shoulder Objective Measurements Elbow Objective Measurements PHYSICIAN CERTIFICATION: I certify the specified therapy services for Eloinabenson Newton are required, authorized, and reviewed every 30 days.
== END 2024-02-03 10:00 | disposition home or self-care (01) ==
LOC: PT 09:00
PROVIDERS: Visit Provider Nurse Practitioner Family
DX: R53.83 Other fatigue (principal)
CPT/HCPCS: 97110; 97163; 97530

== ENCOUNTER 2024-02-04 07:28 | Outpatient (CLI) | payer MEDICARE, SELFPAY ==
[2024-02-04] VITALS (7 sets, daily range): BP systolic 92–122; BP diastolic 58–82; PULSE 60–96; RESP 16–18; TEMP 36.4; O2SAT 93–95; BMI 33.0
--- NOTE | 2024-02-04 07:35 | CT_ITS ---
APPROVED REPORT [employer]: CLINICAL INDICATION Chest Pain TECHNIQUE Image Acquisition: A 128 slice MDCT scanner (Lunera Lightinga View) was used for data acquisition. A noncontrast coronary calcium scan was performed. A CT attenuation threshold of 130 Hounsfield units (HU) was used for the detection of calcium in contiguous voxels of 1 sq mm in area to be counted as individual lesions. Bolus tracking in the ascending aorta with a threshold of 180 HU was performed. Immediately afterwards, ECG synchronized cardiac CT was then performed from the cardiac base to apex using retrospective gating with ECG tube current modulation. A total of 85 mL of Isovue 370 mg/mL contrast medium was administered at 5 mL/sec followed by a saline flush using a biphasic injection protocol. A tube voltage of 120 KVp was used. The patient received the following medications prior to the cardiac CT. 75 mg of oral metoprolol 15 mg of oral ivabradine 0.8 mg of sublingual nitroglycerin The average heart rate at the time of acquisition was 55 bpm and regular. Image Reconstruction Transaxial images were reconstructed at 0.67 mm slide thickness. Data was reviewed interactively on an advanced workstation capable of 2 and 3-dimensional displays in all conventional reconstruction formats, including multiplanar reformations, maximum intensity projections, curved multiplanar reformations, and volume rendered reconstructions. When applicable, selected routine images describing the relevant coronary anatomy and pathology were saved and sent to PACS. Complications None Technical Quality Overall image quality was suboptimal due to significant motion Coronary artery opacification was fair. Total DLP (Dose-Length Product) is 1469.6 mGy-cm. The reported value represents the total of one or more individual components during the CT acquisition of this date and at this time, and as such, the same value may appear in more than one CT report depending on the interpreting/reporting physicians. COMPARISON None FINDINGS CT Coronary Calcium Scoring LMA (Left Main Artery) = 0 LAD (Left Anterior Descending) = 30 LCX (Left Coronary Circumflex) = 0 RCA (Right Coronary Artery) = 0 Total Calcium Score = 30 using the AJ-130 method. The observed calcium score of 30 is at 95th percentile for subjects of the same age, sex, and race/ethnicity. The interpretation of the calcium heart score is based on the following continuum*: 0 = no calcified plaque detected (risk of coronary artery disease is very low ??? less than 5%) 1-10 = calcium detected in extremely minimal levels (risk of coronary diseases is still low ??? less than 10%) 11-100 = mild levels of plaque detected with certainty (mild or minimal narrowing of heart arteries is likely) 101-400 = definite,at least moderate levels of plaque detected (relatively high risk of a heart attack within 3-5 years) >401-999 = extensive levels of plaque detected (high risk of heart attack, high levels of vascular disease are present, high likelihood of at least one significant coronary narrowing) *The calcium heart score quantifies the burden of coronary calcification/plaque in the coronary arteries. The calcium heart score is not able to evaluate the presence or burden of non-calcified (i.e. soft) plaque. There is no identifiable calcification in the aortic valve, mitral annulus or mitral valve, pericardium, or myocardium. Coronary CT Angiography The coronary arterial system is right dominant. Quantitative Stenosis Grading: Left Main (LM): The left main originates normally from the left sinus of Valsalva. The LM bifurcates into the left anterior descending artery and left circumflex artery. The LM is patent with no evidence of atherosclerosis. Left Anterior Descending (LAD) and Diagonal Branches: Step-artifact is present in the distal LAD. The LAD gives off 2 diagonal branches. There is no evidence of LAD-myocardial bridge. There is 1 focus of calcification in the mid LAD, but with no luminal stenosis. Left Circumflex (LCX) and Obtuse Marginals (OM): The LCX gives off 1 Obtuse Marginal (OM) branch. The LCX and its branches are patent with no evidence of atherosclerosis. Right Coronary Artery (RCA): The RCA originates normally from the right sinus of Valsalva. The RCA gives off a posterior descending artery (PDA) and posterolateral (PL) branches. The RCA and its branches are patent with no evidence of atherosclerosis. Non-Coronary Cardiac Findings: Analysis of the left ventricular (LV) structure and function was performed after 3-D reconstruction of the LV from axial images, with user-corrected automatic contouring for assessment of LV volumes and user-defined reconstruction from oblique planes for measurement of 3-D cardiac structure and function. -The left ventricle systolic function is normal. -There is no left atrial appendage filling defect. Two right pulmonary veins and two left pulmonary veins drain normally into the left atrium. -No pericardial thickening or calcification. -Central and branch pulmonary arteries in the [id number] are unremarkable. -Thoracic aorta within the visualized thoracic aortic-branches in the [id number] is unremarkable. Extracardiac Structures No significant extra-cardiac findings. Note, however, that this study is focused on the cardiac findings. IMPRESSION -Suboptimal image quality due to significant motion and step artifact. -Presence of coronary calcification with an Agatston score = 30 using the AJ-130 method. -The observed calcium score of 30 is at 95th percentile for subjects of the same age, sex, and race/ethnicity. -No evidence of significant flow-limiting atherosclerosis of the coronary arteries. -CAD-RADS 1. Management recommendations per ACC/AHA guidelines*, as clinically appropriate. *Recommendations: CAD RADS 0: Reassurance. Consider non-atherosclerotic causes of chest pain. CAD RADS 1: Consider non-atherosclerotic causes of chest pain. Consider preventive therapy and risk factor modification. CAD RADS 2: Consider non-atherosclerotic causes of chest pain. Consider preventive therapy and risk factor modification, particularly for patients with nonobstructive plaque in multiple segments. CAD RADS 3: Consider further functional testing. Consider symptom-guided anti-ischemic and preventive pharmacotherapy as well as risk factor modification per published guideline statements. CAD RADS 4A: Consider further functional testing or invasive coronary angiography with revascularization per published guideline statements. Consider symptom-guided anti-ischemic and preventive pharmacotherapy as well as risk factor modification per published guideline statements. CAD RADS 4B: Invasive coronary angiography recommended with revascularization per published guideline statements. Consider symptom-guided anti-ischemic and preventive pharmacotherapy as well as risk factor modification per published guideline statements. CAD RADS 5: Consider invasive angiography and/or viability assessment with revascularization per published guideline statements. Consider symptom-guided anti-ischemic and preventive pharmacotherapy as well as risk factor modification per published guideline statements. CRITICAL RESULT None COMMUNICATION Per this written report The coronary and cardiac findings of this CCTA were reviewed, reported, and signed by He Simental MD ([employer]) Conclusion Electronically signed by : Mary Simental MD 02/09/2024 11:03:54
[2024-02-04] MEDS: METOPROLOL TARTRATE 50MG TABLET *IVABRADINE+METOPROLOL REGIMINE 50 MG PO (08:02)
[2024-02-04] MEDS: IVABRADINE HCL 7.5MG TABLET *IVABRADINE+METOPROLOL REGIMINE 15 MG PO (08:02)
[2024-02-04] MEDS: METOPROLOL TARTRATE 25MG TABLET *IVABRADINE+METOPROLOL REGIMINE 25 MG PO (08:02)
[2024-02-04] MEDS: NITROGLYCERIN 0.4MG SL TABLET 0.400000000000000022 MG SL (09:00)
[2024-02-04] MEDS: 0.9 % SODIUM CHLORIDE 50 ML VIAL IV (09:25)
[2024-02-04] MEDS: IOPAMIDOL-370 (76%);100ML BOTTLE 85 ML IV (09:25)
== END 2024-02-04 23:59 | disposition home or self-care (01) ==
PROVIDERS: PCP Nurse Practitioner Family; Visit Provider Nurse Practitioner
DX: R07.9 Chest pain, unspecified (principal); R94.39 Abnormal result of other cardiovascular function study; R94.31 Abnormal electrocardiogram [ECG] [EKG]; R06.00 Dyspnea, unspecified
CPT/HCPCS: 75571; 75574; Q9967

== ENCOUNTER 2024-03-22 14:52 | Outpatient (CLI) | payer MEDICARE, SELFPAY ==
--- NOTE | 2024-03-22 14:52 | CT_ITS ---
FINAL REPORT CLINICAL HISTORY: dyspnea, cough COMPARISON: None FINDINGS: Axial CT images of the chest were obtained with contrast. Coronal and sagittal reformatted images were also obtained. This study was performed with techniques to keep radiation doses as low as reasonably achievable, (ALARA). Individualized dose reduction techniques using automated exposure control or adjustment of mA and/or KV according to the patient's size were employed. There are several mildly enlarged mediastinal nodes, a nonspecific finding, favor reactive. No hilar mass or adenopathy is identified. No axillary mass or adenopathy is identified. On lung window images, no pulmonary mass or dominant pulmonary nodule is identified. Moderate changes of emphysema are present as well as mild scarring. There are chronic left sixth and seventh lateral rib fractures. No localized pulmonary inflammatory process is identified. Limited images of the upper abdomen reveal mild bilateral adrenal gland enlargement, favor adenoma or hyperplasia. No follow-up is required at this time. The gallbladder is collapsed with mild wall thickening. IMPRESSION: Moderate changes of emphysema and mild scarring are present. Small mildly enlarged mediastinal lymph nodes are present, nonspecific. Gallbladder is collapsed with mild wall thickening. Reviewed, Interpreted and Dictated by Jose Pittman III, MD Transcribed by Lyudmila Ríos Authenticated and [facility]
[2024-03-22] MEDS: SODIUM CHLORIDE 0.9% 10ML SYR (RAD ONLY) 10 ML IV (15:04)
[2024-03-22] MEDS: IOPAMIDOL-370 (76%);100ML BOTTLE 75 ML IV (15:04)
== END 2024-03-22 23:59 | disposition home or self-care (01) ==
LOC: RAD 14:52
PROVIDERS: PCP Nurse Practitioner Family; Visit Provider Nurse Practitioner
DX: R94.31 Abnormal electrocardiogram [ECG] [EKG] (principal); R06.09 Other forms of dyspnea; R06.02 Shortness of breath; R07.89 Other chest pain; E66.9 Obesity, unspecified; Z68.33 Body mass index [BMI] 33.0-33.9, adult; F17.210 Nicotine dependence, cigarettes, uncomplicated; R05.9 Cough, unspecified
CPT/HCPCS: 71260; Q9967

== ENCOUNTER 2024-04-28 07:51 | Outpatient (CLI) | payer MEDICARE, MEDICAID, SELFPAY ==
--- NOTE | 2024-04-28 07:51 | US_ITS ---
FINAL REPORT TECHNIQUE: Sonographic images of the abdomen were obtained in all four quadrants. CLINICAL HISTORY: RUQ/RLQ pain COMPARISON: None FINDINGS: LIVER: Fatty infiltration of the liver is present.. No focal hepatic lesion or intrahepatic biliary dilatation. GALLBLADDER: No gallstones. There is an echogenic focus in the fundus of the gallbladder with ringdown artifact, the appearance which is most consistent with adenomyomatosis. No pericholecystic fluid collection. The common duct measures 4 mm. This is within normal limits for age. PANCREAS: Not well-visualized. RIGHT KIDNEY: 10 cm. No hydronephrosis, mass or stone. LEFT KIDNEY: 10.2 cm. No hydronephrosis, mass or stone. SPLEEN: 11 cm. No focal splenic lesion. AORTA/IVC: No abdominal aortic aneurysm. Visualized IVC within normal limits. OTHER: No ascites. IMPRESSION: Echogenic focus in the fundus of the gallbladder, with ringdown artifact, most consistent in appearance with adenomyomatosis. Fatty infiltration of the liver. Reviewed, Interpreted and Dictated by Gladis Ibarra MD Transcribed by Lyudmila Ríos Authenticated and [facility]
== END 2024-04-28 23:59 | disposition home or self-care (01) ==
LOC: RAD 07:51
PROVIDERS: PCP Nurse Practitioner Family; Visit Provider Nurse Practitioner Family
DX: R10.11 Right upper quadrant pain (principal); R10.31 Right lower quadrant pain
CPT/HCPCS: 76700

== ENCOUNTER 2025-01-26 13:08 | Emergency (ER) | payer MEDICARE, SELFPAY ==
[2025-01-26 13:17] VITALS: BP 115/90; PULSE 96; RESP 16; TEMP 36.6; O2SAT 96; BMI 33.0
[2025-01-26 13:40] LABS: Microscopic, Urine URINE MICROSCOPIC (MICROSCOPIC)
[2025-01-26 13:43] LABS: Appearance,Urine CLEAR (Clear); Bilirubin,Urine Negative (Negative); Blood, Urine Negative (Negative); Color,Urine YELLOW (Yellow); Glucose,Urine (UA) Negative (Negative); Ketones,Urine Negative (Negative); Leukocyte Esterase,Urine Negative (Negative); Nitrate,Urine Negative (Negative); PH,Urine 5.5 (5.0-8.5); Protein,Urine Negative (Negative); Specific Gravity, Urine >= 1.030 (1.005-1.030); Urobilinogen,Urine 0.2 EU/dl (0.2)
[2025-01-26 14:05] LABS: Bacteria,Urine 2+ /lpf
--- NOTE | 2025-01-26 14:22 | CT_ITS ---
FINAL REPORT TECHNIQUE: Axial images through the abdomen and pelvis were performed without contrast. This study was performed with techniques to keep radiation doses as low as reasonably achievable, (ALARA). Individualized dose reduction techniques using automated exposure control or adjustment of mA and/or kV according to the patient's size were employed. CLINICAL HISTORY: L sided flank pain radiating to abdomen FINDINGS: Abdomen: There is scarring at the lung bases. There is mild fatty infiltration of the liver. The gallbladder is present. There are mild calcified granulomas of the spleen. The pancreas, adrenals and kidneys are unremarkable. Pelvis: The appendix appears unremarkable. The urinary bladder is decompressed. The uterus is absent. The is no pelvic mass or inflammation. IMPRESSION: No evidence of kidney stone or obstruction. Reviewed, Interpreted and Dictated by Hadley Paulino MD Transcribed by Carrie Stark Authenticated and [facility]
[2025-01-26 14:27] VITALS: BP 120/83; PULSE 96; O2SAT 96
[2025-01-26] MEDS: KETOROLAC 30MG/ML VIAL 15 MG IV (14:34)
[2025-01-26] MEDS: METHOCARBAMOL 500MG TABLET 1500 MG PO (14:44)
[2025-01-26] MEDS: DEXAMETHASONE 4MG TABLET 10 MG PO (14:45)
--- NOTE | 2025-01-26 14:47 | HMH.EDGENADL ---
Discharge Plan Disposition Patient Disposition: Home, Self-Care Condition: Good Prescriptions Prescriptions: New prednisone 20 mg tablet 40 mg PO DAILY 5 Days Qty: 10 0RF pantoprazole 40 mg tablet,delayed release (DR/EC) 40 mg PO DAILY Qty: 14 0RF methocarbamol 750 mg tablet 750 mg PO Q8H PRN (Reason: pain) Qty: 20 0RF No Action benzonatate 100 mg capsule 100 mg PO TID PRN (Reason: cough) Qty: 30 0RF Referrals Follow up/Referrals: Zahira Connor APRN [Primary Care Provider] - See instructions Activity Restrictions/Add. Instructions Additional Instructions/Restrictions: Call your family doctor to establish care for this visit to the emergency department and schedule follow-up within 48 hours to ensure improvement. If you have any worsening of your condition or any other concerning signs or symptoms, return to the emergency department or your primary care doctor for further evaluation. Take Tylenol 1000 mg every 6 hours (4 times daily) and ibuprofen 400 mg every 6 hours (4 times daily) as needed with food and water to prevent GI upset and kidney damage. Clinical Impressions Clinical Impression: Left paraspinal back pain, Thoracic radiculopathy Stand Alone Forms Stand Alone Forms: Work/School Release Instructions Patient Instructions: DI for Acute Pain -- Adult, DI for Back Strain or Sprain Print Language Print Language: Japanese Discharge ED Provider: Gerda Read General Adult HPI <Chato Nance MD - Last Filed: 01/26/25 15:14> General Chief complaint: PAIN Stated complaint: severe pain L side and back Time Seen by Provider: 01/26/25 14:06 Mode of Arrival: Ambulatory Source of Information: Patient Description of Symptoms (Recalled from ER Triage Doc. by RN): Pt presents for evaluation of left flank pain. Pt states it started last night, and the pain is intermittent. When the pain occurs it is a 10/10 and is accompanied with nausea. Pt states she has taken tylenol, ibuprofen and 2 muscle relaxers but has not had any relief. History of Present Illness HPI narrative: Please note that above description of symptoms, in this electronic medical record under categorization of recalled from ER triage doctor by RN are reflective of an initial nursing assessment, however, is not reflective of my full history and physical exam that was personally taken and clarified. Consequentially, this preceding description of symptoms, which may include the patient's categorized chief complaint in the EMR, do not reflect my personal clinical impression, and the ultimate description of history of present illness and patient stated complaints should be deferred to this section of the note. Unless stated otherwise or congruent with this section of the note, additional signs, symptoms, or incongruence should be interpreted as inaccurate with my clinical impression. Related Data Previous Rx's ?Medication ?Instructions ?Recorded benzonatate 100 mg capsule 100 mg PO TID PRN cough #30 caps 05/18/24 methocarbamol 750 mg tablet 750 mg PO Q8H PRN pain #20 tabs 01/26/25 pantoprazole 40 mg tablet,delayed 40 mg PO DAILY #14 tabs 01/26/25 release prednisone 20 mg tablet 40 mg (2 x 20 mg) PO DAILY 5 days 01/26/25 #10 tabs Allergies Allergy/AdvReac Type Severity Reaction Status Date / Time No Known Allergies Allergy Verified 04/21/24 15:40 PFS <Chato Nance MD - Last Filed: 01/26/25 15:14> PFS Disclaimer: The information contained in this section may have been updated after the patient was seen, as this information can be updated by other users. Surgical History History of section History of loop electrical excision procedure (LEEP) History of hysterectomy Social History Smoking Status: Current every day smoker tobacco type: cigarettes packs per day: 1 alcohol intake: never substance use type: denies use current occupational status: disabled Travel in the last 8 weeks: None household members: children housing: house Have you lived/traveled outside [place] in past 30 days?: No Contact w/someone who lives/traveled outside US past 30 days?: No Exposure to someone with infectious disease in past 14 days?: No Do you have a fever (greater than 100.4 F or 38 C)?: No Have you tested positive for COVID-19: No Exposed to someone with COVID-19 in past 14 days?: No Do you have a sore throat?: No Do you have a cough?: No Do you have any weakness?: No Do you have any diarrhea?: No Are you experiencing any unusual bleeding?: No Do you have any muscle aches/pain?: Yes Do you have any abdominal pain?: No Are you experiencing loss of taste or smell?: No Other Medical History Have you received the Flu Vaccine for this season: No Have you received the Pneumonia Vaccine: No <Chato Nance MD - Last Filed: 01/26/25 15:14> ROS Obtained: Yes All systems reviewed & no additional complaints except as documented Physical Exam <Chato Nance MD - Last Filed: 01/26/25 15:14> General General appearance: alert Head Head exam: atraumatic and normocephalic Eye Eye exam: Present normal appearance, PERRL and EOMI Neck Neck exam: Present normal inspection, full ROM and trachea midline Respiratory Respiratory exam: Absent respiratory distress, wheezes, stridor, accessory muscle use or prolonged expiratory phase Cardiovascular Cardiovascular exam: Present other (Pulses equal symmetric in upper and lower extremities) Abdominal Exam Abdominal exam: Present soft; Absent distention, tenderness or pulsatile mass Extremities Exam Extremities exam: Absent edema Neurological Exam Neurological exam: Present alert, oriented X3 and CN II-XII intact; Absent motor sensory deficit Skin Skin exam: Present warm and dry; Absent diaphoresis or erythema Medical Decision Making <Chato Nance MD - Last Filed: 01/26/25 15:14> Medical Records Medical records reviewed: Yes I reviewed the patient's medical records. Screening: Per USPSTF and CDC recommendations, given the prevalence of disease in our region, it is our hospital?s policy to screen for HIV and viral Hepatitis for all patients aged 18 and over and those with ongoing risk factors. Nael Inquiry Pt receiving controlled substance: No Nael was queried for this patient: No Vital Signs: 01/26/25 13:17 01/26/25 14:27 01/26/25 15:30 Temperature 97.9 F Temperature Source Oral Pulse Rate 96 H 96 H Pulse Rate [Left] 96 H Respiratory Rate 16 Blood Pressure 120/83 124/85 Blood Pressure [Right Arm] 115/90 Blood Pressure Mean 94 Blood Pressure Mean [Right Arm] 98 Blood Pressure Source [Right Arm] Automatic Cuff Blood Pressure Position [Right Arm] Sitting 02 Sat by Pulse Oximetry 96 96 96 Oxygen Delivery Method Room Air Room Air Room Air 01/26/25 16:01 01/26/25 16:37 Temperature 98 F Temperature Source Pulse Rate 94 H 82 Pulse Rate [Left] Respiratory Rate 16 Blood Pressure 139/83 139/83 Blood Pressure [Right Arm] Blood Pressure Mean 92 Blood Pressure Mean [Right Arm] Blood Pressure Source [Right Arm] Blood Pressure Position [Right Arm] 02 Sat by Pulse Oximetry 96 Oxygen Delivery Method Room Air Lab Data Lab Results 01/26/25 13:26: Urine Color Yellow, Urine Appearance Clear, Urine pH 5.5, Ur Specific [place] >= 1.030, Urine Protein Negative, Urine Glucose (UA) Negative, Urine Ketones Negative, Urine Blood Negative, Urine Nitrate Negative, Urine Bilirubin Negative, Urine Urobilinogen 0.2, Ur Leukocyte Esterase Negative, Urine RBC None, Urine WBC 5-10, Ur Squamous Epith Cells 3-5, Urine Bacteria 2+ 01/26/25 14:28: WBC 10.6, RBC 5.20, Hgb 15.0, Hct 45.8, MCV 88.1, MCH 28.8, MCHC 32.8, RDW 14.4, Plt Count 188, MPV 13.2 H, Neut % (Auto) 69.4, Lymph % (Auto) 22.5, [place] % (Auto) 4.9, Eos % (Auto) 2.5, Baso % (Auto) 0.4, Neut # (Auto) 7.3, Lymph # (Auto) 2.4, [place] # (Auto) 0.5, Eos # (Auto) 0.3, Baso # (Auto) 0.0, Sodium 141, Potassium 4.2, Chloride 108 H, Carbon Dioxide 24, Anion Gap 13.2, BUN 20 H, Creatinine 0.80, Estimated Creat Clear 139, Estimated GFR 76, Est GFR ( Amer) 92, Glucose 114 H, Calcium 9.5, Total Bilirubin 0.5, AST 33, ALT 34, Alkaline Phosphatase 99, Total Protein 7.6, Albumin 4.5, Globulin 3.1, Albumin/Globulin Ratio 1.5 01/26/25 14:28 01/26/25 14:28 Orders (Tests/Meds): ED MEDICATIONS Discontinued Medications Generic Name Dose Route Start Last Admin Trade Name Freq PRN Reason Stop Dose Admin Dexamethasone 10 mg 01/26/25 14:37 01/26/25 14:45 Dexamethasone 4mg Tablet PO 01/26/25 14:38 10 mg ONCE ONE Administration Ketorolac Tromethamine 15 mg 01/26/25 14:22 01/26/25 14:34 Ketorolac 30mg/Ml Vial IV 01/26/25 14:23 15 mg ONCE ONE Administration Methocarbamol 1,500 mg 01/26/25 14:37 01/26/25 14:44 Methocarbamol 500mg Tablet PO 01/26/25 14:38 1,500 mg ONCE ONE Administration ORDERS Category Date Time Status CT abdomen pelvis wo con Stat Cat Scan 01/26/25 14:22 Completed CBC w/Auto Diff [Complete Blood Count Auto Diff] Stat Lab 01/26/25 14:28 Completed CMP [Comprehensive Metabolic Panel] Stat Lab 01/26/25 14:28 Completed Urinalysis and Microscopic Stat Lab 01/26/25 13:26 Completed Urine Culture Stat Micro 01/26/25 13:26 Received Medical Decision Narrative: 49-year-old female presenting with left flank pain. She has a history of chronic back pain. States that she bent over to pet her dog yesterday, had a popping sensation in her back and pain in the left side of her flank. Radiates around to her abdomen. No urinary symptoms, fevers, chills. Pain is intermittent, colicky, severely painful when flaring up, but 2 out of 10 at a baseline. Denies lower extremity weakness, bowel or bladder dysfunction or any other neurologic deficits. History was obtained via conversation with patient. On arrival, patient hemodynamically stable, alert, oriented x4, appropriate, GCS 15, moving all extremities spontaneously, pupils equal and reactive to light. Full physical exam performed and significant for uncomfortable appearing female sitting on the side of the bed. No midline spinal tenderness. Some left flank tenderness. No overlying skin changes or outward signs of abnormality, mild pain to percussion. Differential includes urinary tract infection, pyelonephritis, radiculopathy, nephrolithiasis, among others. Patient placed on continuous cardiac monitoring and continuous pulse ox with initial blood pressure 115/90, heart rate 96, saturation 96% on room air. Patient was given Toradol, Decadron, Robaxin. Independent interpretation of workup with nonactionable UA. Hematologic workup demonstrates no hematologic abnormalities with normal kidney function. CT imaging independently interpreted, no stone. No obvious abnormality about the spine. Prior to formal radiology read and disposition/reevaluation, care handed off to oncoming physician. Liner Installer disclaimer Much of this encounter note is an electronic husbandry technician spoken language to printed text. Electronic husbandry technician of the spoken language may permit errors. Although I have reviewed the note, some errors may still exist. <Gerda Read, DO - Last Filed: 01/27/25 00:27> Vital Signs: 01/26/25 13:17 01/26/25 14:27 01/26/25 15:30 Temperature 97.9 F Temperature Source Oral Pulse Rate 96 H 96 H Pulse Rate [Left] 96 H Respiratory Rate 16 Blood Pressure 120/83 124/85 Blood Pressure [Right Arm] 115/90 Blood Pressure Mean 94 Blood Pressure Mean [Right Arm] 98 Blood Pressure Source [Right Arm] Automatic Cuff Blood Pressure Position [Right Arm] Sitting 02 Sat by Pulse Oximetry 96 96 96 Oxygen Delivery Method Room Air Room Air Room Air 01/26/25 16:01 01/26/25 16:37 Temperature 98 F Temperature Source Pulse Rate 94 H 82 Pulse Rate [Left] Respiratory Rate 16 Blood Pressure 139/83 139/83 Blood Pressure [Right Arm] Blood Pressure Mean 92 Blood Pressure Mean [Right Arm] Blood Pressure Source [Right Arm] Blood Pressure Position [Right Arm] 02 Sat by Pulse Oximetry 96 Oxygen Delivery Method Room Air Lab Data Lab Results 01/26/25 13:26: Urine Color Yellow, Urine Appearance Clear, Urine pH 5.5, Ur Specific [place] >= 1.030, Urine Protein Negative, Urine Glucose (UA) Negative, Urine Ketones Negative, Urine Blood Negative, Urine Nitrate Negative, Urine Bilirubin Negative, Urine Urobilinogen 0.2, Ur Leukocyte Esterase Negative, Urine RBC None, Urine WBC 5-10, Ur Squamous Epith Cells 3-5, Urine Bacteria 2+ 01/26/25 14:28: WBC 10.6, RBC 5.20, Hgb 15.0, Hct 45.8, MCV 88.1, MCH 28.8, MCHC 32.8, RDW 14.4, Plt Count 188, MPV 13.2 H, Neut % (Auto) 69.4, Lymph % (Auto) 22.5, [place] % (Auto) 4.9, Eos % (Auto) 2.5, Baso % (Auto) 0.4, Neut # (Auto) 7.3, Lymph # (Auto) 2.4, [place] # (Auto) 0.5, Eos # (Auto) 0.3, Baso # (Auto) 0.0, Sodium 141, Potassium 4.2, Chloride 108 H, Carbon Dioxide 24, Anion Gap 13.2, BUN 20 H, Creatinine 0.80, Estimated Creat Clear 139, Estimated GFR 76, Est GFR ( Amer) 92, Glucose 114 H, Calcium 9.5, Total Bilirubin 0.5, AST 33, ALT 34, Alkaline Phosphatase 99, Total Protein 7.6, Albumin 4.5, Globulin 3.1, Albumin/Globulin Ratio 1.5 Orders (Tests/Meds): ED MEDICATIONS Discontinued Medications Generic Name Dose Route Start Last Admin Trade Name Freq PRN Reason Stop Dose Admin Dexamethasone 10 mg 01/26/25 14:37 01/26/25 14:45 Dexamethasone 4mg Tablet PO 01/26/25 14:38 10 mg ONCE ONE Administration Ketorolac Tromethamine 15 mg 01/26/25 14:22 01/26/25 14:34 Ketorolac 30mg/Ml Vial IV 01/26/25 14:23 15 mg ONCE ONE Administration Methocarbamol 1,500 mg 01/26/25 14:37 01/26/25 14:44 Methocarbamol 500mg Tablet PO 01/26/25 14:38 1,500 mg ONCE ONE Administration ORDERS Category Date Time Status CT abdomen pelvis wo con Stat Cat Scan 01/26/25 14:22 Completed CBC w/Auto Diff [Complete Blood Count Auto Diff] Stat Lab 01/26/25 14:28 Completed CMP [Comprehensive Metabolic Panel] Stat Lab 01/26/25 14:28 Completed Urinalysis and Microscopic Stat Lab 01/26/25 13:26 Completed Urine Culture Stat Micro 01/26/25 13:26 Received Medical Decision Narrative: 49-year-old female presenting with left flank pain. She has a history of chronic back pain. States that she bent over to pet her dog yesterday, had a popping sensation in her back and pain in the left side of her flank. Radiates around to her abdomen. No urinary symptoms, fevers, chills. Pain is intermittent, colicky, severely painful when flaring up, but 2 out of 10 at a baseline. Denies lower extremity weakness, bowel or bladder dysfunction or any other neurologic deficits. History was obtained via conversation with patient. On arrival, patient hemodynamically stable, alert, oriented x4, appropriate, GCS 15, moving all extremities spontaneously, pupils equal and reactive to light. Full physical exam performed and significant for uncomfortable appearing female sitting on the side of the bed. No midline spinal tenderness. Some left flank tenderness. No overlying skin changes or outward signs of abnormality, mild pain to percussion. Differential includes urinary tract infection, pyelonephritis, radiculopathy, nephrolithiasis, among others. Patient placed on continuous cardiac monitoring and continuous pulse ox with initial blood pressure 115/90, heart rate 96, saturation 96% on room air. Patient was given Toradol, Decadron, Robaxin. Independent interpretation of workup with nonactionable UA. Hematologic workup demonstrates no hematologic abnormalities with normal kidney function. CT imaging independently interpreted, no stone. No obvious abnormality about the spine. Prior to formal radiology read and disposition/reevaluation, care handed off to oncoming physician. Liner Installer disclaimer Much of this encounter note is an electronic husbandry technician spoken language to printed text. Electronic husbandry technician of the spoken language may permit errors. Although I have reviewed the note, some errors may still exist. DO Jacek: I have seen care of the patient at 1500 at time of departure previous provider. On my assessment, she is feeling a lot better. She is neurologically intact with benign abdominal exam. I independently interpreted CT scan prior to radiology read and noted no stone, no spine fracture. Please see radiology read for final interpretation. Labs obtained are reassuring, urine is not concerning for infection. Given the patient is feeling better, I feel she is appropriate for discharge home with diagnosis of likely musculoskeletal chest pain. I prescribed a short course of prednisone for anti-inflammatory as well as Robaxin for symptomatic improvement. Strict return precautions were given as well as instructions for close follow-up with PCP. Critical Care <Chato Nance MD - Last Filed: 01/26/25 15:14> Critical Care Time Critical Care Time: No
[2025-01-26 14:49] LABS: Albumin Level 4.5 g/dl (3.5-5.0); Chloride 108 mmol/L (98-107); Sodium 141 mmol/L (136-145)
[2025-01-26 14:50] LABS: Potassium 4.2 mmoL/L (3.5-5.1)
[2025-01-26 14:52] LABS: Alanine Aminotransferase 34 U/L (12-78); Anion Gap 13.2 mEq/L (5-15); Aspartate Amino Transferase 33 U/L (14-36); Blood Urea Nitrogen 20 mg/dl (7-17); Carbon Dioxide 24 mmol/L (22.0-30.0); Creatinine Clearance Estimated 139 mL/min (50-200); Estimated Glomerular Filt Rate 76 ml/min (>60); GFR (African American) 92 ML/MIN (>60)
[2025-01-26 14:53] LABS: Albumin/Globulin Ratio 1.5 (1.1-1.8); Alkaline Phosphatase 99 U/L (38-126); Bilirubin,Total 0.5 mg/dl (0.2-1.3); Calcium 9.5 mg/dl (8.4-10.2); Globulin 3.1 g/dL (1.3-3.2); Glucose 114 mg/dl (74-100); Total Protein,Serum 7.6 g/dl (6.3-8.2)
[2025-01-26 15:02] LABS: Basophils % 0.4 % (0.1-2.0); Eosinophils # 0.3 K/mm3 (0.0-0.4); Eosinophils % 2.5 % (0.1-12.0); Hematocrit 45.8 % (37.0-47.0); Lymphocytes # 2.4 K/mm3 (0.7-4.5); Lymphocytes % 22.5 % (10-50); Mean Corpuscular HGB Conc 32.8 g/dL (31.8-35.4); Mean Corpuscular Hemoglobin 28.8 pg (27.0-31.2); Mean Corpuscular Volume 88.1 fl (81-99); Mean Platelet Volume 13.2 fl (7.4-10.4); Monocytes # 0.5 K/mm3 (0.1-1.0); Monocytes % 4.9 % (1.7-9.3); Neutrophils # 7.3 K/mm3 (1.8-7.8); Neutrophils % 69.4 % (37.0-80.0); Nucleated Red Blood Cells # 0 10^3/uL; Nucleated Red Blood Cells % 0 %; Platelet Count 188 K/mm3 (142-424); Red Cell Distribution Width 14.4 % (11.5-17.5); Red Cell Distribution Width-SD 46.1 fL; White Blood Count 10.6 K/mm3 (4.8-10.8)
[2025-01-26 15:30] VITALS: BP 124/85; PULSE 96; O2SAT 96
[2025-01-26 16:01] VITALS: BP 139/83; PULSE 94; O2SAT 96
[2025-01-26 16:37] VITALS: BP 139/83; PULSE 82; RESP 16; TEMP 36.6; O2SAT 97
== END 2025-01-26 16:38 | disposition home or self-care (01) ==
PROVIDERS: Emergency Medicine; Emergency Provider Emergency Medicine; PCP Nurse Practitioner
DX: M54.14 Radiculopathy, thoracic region (principal); R10.32 Left lower quadrant pain; M54.89 Other dorsalgia
CPT/HCPCS: 74176; 80053; 81001; 85025; 87086; 96374; 99284; J1885; J8540

== ENCOUNTER 2025-07-06 07:50 | Outpatient (CLI) | payer MEDICARE, SELFPAY ==
[2025-07-06 09:26] LABS: Vitamin B12 333 pg/mL (239-931)
[2025-07-06 09:58] LABS: Folate 5.47 ng/mL
[2025-07-07 13:26] LABS: Antinuclear Antibodies (ANA) Negative (Negative)
== END 2025-07-06 23:59 | disposition home or self-care (01) ==
LOC: LAB 07:50
PROVIDERS: PCP Nurse Practitioner; Visit Provider Specialist
DX: M54.14 Radiculopathy, thoracic region (principal); R10.9 Unspecified abdominal pain; R26.0 Ataxic gait; R26.89 Other abnormalities of gait and mobility; R26.9 Unspecified abnormalities of gait and mobility; G25.9 Extrapyramidal and movement disorder, unspecified; M32.9 Systemic lupus erythematosus, unspecified
CPT/HCPCS: 36415; 82390; 82607; 82746

== ENCOUNTER 2025-07-11 12:28 | Outpatient (CLI) | payer MEDICARE, SELFPAY ==
--- NOTE | 2025-07-11 13:00 | MR_ITS ---
FINAL REPORT CLINICAL HISTORY: Gait ataxia.body feels limp FINDINGS: Multi planar MR imaging was obtained through the brain without contrast. The midline structures appear intact. There is no evidence of Chiari malformation. On T2 and flair axial images the brain parenchyma is homogeneous. On diffusion-weighted images there is no evidence of restricted diffusion. The visualized paranasal sinuses demonstrate normal signal voids. The seventh and eighth nerve root complexes are intact. IMPRESSION: Essentially unremarkable nonenhanced brain MRI. Reviewed, Interpreted and Dictated by Hadley Paulino MD Transcribed by Carrie Stark Authenticated and [facility]
--- NOTE | 2025-07-11 13:45 | MR_ITS ---
FINAL REPORT CLINICAL HISTORY: gait disturbance. body feels limp FINDINGS: Multiplanar MR imaging of the thoracic spine was performed without and with contrast. On the sagittal T2-weighted images, there is abnormal decreased signal throughout the thoracic discs. The vertebrae are of normal height. There is no malalignment. T6-7: Moderate right paracentral disc protrusion with moderate compromise of the right lateral recess. T7-8: Bilateral paracentral disc protrusions, left greater than right with bilateral lateral recess stenosis. T8-9: Large midline disc extrusion with significant indentation on the thecal sac and moderate spinal canal stenosis. Remaining levels are unremarkable. On the postcontrast images, no abnormal contrast enhancement is identified. IMPRESSION: Multilevel disc protrusions as detailed above. No abnormal contrast enhancement identified. Reviewed, Interpreted and Dictated by Hadley Paulino MD Transcribed by Carrie Stark Authenticated and [facility]
[2025-07-11] MEDS: SODIUM CHLORIDE 0.9% 10ML SYR (RAD ONLY) 10 ML IV (14:42)
[2025-07-11] MEDS: GADOTERIDOL INJ 20ML SYRINGE 20 ML IV (14:42)
== END 2025-07-11 23:59 | disposition home or self-care (01) ==
LOC: RAD 12:29
PROVIDERS: PCP Nurse Practitioner; Visit Provider Specialist
DX: M51.14 Intervertebral disc disorders with radiculopathy, thoracic region (principal); R26.0 Ataxic gait; R26.89 Other abnormalities of gait and mobility; R10.9 Unspecified abdominal pain; G25.9 Extrapyramidal and movement disorder, unspecified; Z87.2 Personal history of diseases of the skin and subcutaneous tissue
CPT/HCPCS: 70551; 72157; A9576

== ENCOUNTER 2025-08-09 15:00 | Outpatient (CLI) | payer MEDICARE, SELFPAY ==
--- NOTE | 2025-08-09 15:02 | MR_ITS ---
FINAL REPORT CLINICAL HISTORY: LOW BACK PAIN THAT RADIATES DOWN LEGS, WORSE IN THE RIGHT FINDINGS: Multiplanar MR imaging of the lumbar spine was performed without contrast. On the sagittal T2-weighted images, there is abnormal decreased signal at L3-4 and L5-S1 with mild loss of height at these levels. The vertebrae are of normal height. The vertebral alignment is normal. L1-2: There is no significant canal stenosis or neural foraminal narrowing. L2-3: There is no significant canal stenosis or neural foraminal narrowing. L3-4: Mild diffuse disc bulge with mild bilateral facet hypertrophy. There is mild bilateral neuroforaminal narrowing. L4-5: Mild diffuse disc bulge with mild bilateral facet hypertrophy. There is mild bilateral neuroforaminal narrowing. L5-S1: Right posterolateral disc protrusion with moderate right neuroforaminal narrowing. IMPRESSION: Diffuse disc bulges at L3-4 and L4-5 with mild bilateral neuroforaminal narrowing. Right posterolateral disc protrusion at L5-S1 with moderate right neuroforaminal narrowing. Reviewed, Interpreted and Dictated by Hadley Paulino MD Transcribed by Carrie Stark Authenticated and [facility]
--- NOTE | 2025-08-09 15:03 | MR_ITS ---
FINAL REPORT CLINICAL HISTORY: chronic neck pain FINDINGS: Multi planar MR imaging was obtained of the cervical spine. There is abnormal decreased signal throughout the cervical discs. The vertebrae are of normal height. There is no malalignment. The cervical cord demonstrates normal signal and configuration. C2-C3: There is no evidence of significant disc bulge or protrusion. There is no significant facet hypertrophy. C3-C4: There is no evidence of significant disc bulge or protrusion. There is no significant facet hypertrophy. C4-C5: Mild diffuse disc bulge with mild to moderate bilateral neuroforaminal narrowing. C5-C6: Mild diffuse disc bulge with mild to moderate bilateral neuroforaminal narrowing. C6-C7: Mild diffuse disc bulge with mild to moderate bilateral neuroforaminal narrowing. C7-T1: There is no evidence of significant disc bulge or protrusion. There is no significant facet hypertrophy. IMPRESSION: Diffuse disc bulges at C4-5, C5-6, and C6-7 with mild to moderate bilateral neuroforaminal narrowing. Reviewed, Interpreted and Dictated by Hadley Paulino MD Transcribed by Carrie Stark Authenticated and [facility]
== END 2025-08-09 23:59 | disposition home or self-care (01) ==
LOC: RAD 15:00
PROVIDERS: PCP Nurse Practitioner; Visit Provider Nurse Practitioner
DX: M50.121 Cervical disc disorder at C4-C5 level with radiculopathy (principal); M50.122 Cervical disc disorder at C5-C6 level with radiculopathy; M50.123 Cervical disc disorder at C6-C7 level with radiculopathy; M99.71 Connective tissue and disc stenosis of intervertebral foramina of cervical region
CPT/HCPCS: 72141; 72148